=== PATIENT | male | born 1950 | race Caucasian/White ===

== ENCOUNTER 2019-09-13 23:56 | Emergency (ER) | payer OTHER, SELFPAY ==
--- NOTE | ~2019-09-13 | XR_ITS ---
EXAMINATION: XR chest 2V DATE: 09/14/2019 01:07 INDICATION: Shortness of breath. TECHNIQUE: Frontal and lateral views of the chest were obtained. COMPARISON: Chest 2 views 10/04/2018, chest CT 10/04/2018 FINDINGS: The chest demonstrates clear lungs without pneumonia, pleural effusion, or pneumothorax. Th e heart size is normal. IMPRESSION: 1. No acute cardiopulmonary disease. Reviewed, dictated and finalized at location A. PULLER
[2019-09-14 00:03] VITALS: BP 145/83; PULSE 95; RESP 18; TEMP 38.1; O2SAT 99
--- NOTE | 2019-09-14 00:39 | ED.MALEGU ---
HPI - Male Genitourinary General Chief complaint: Urogenital-Male Stated complaint: sob Time Seen by Provider: 09/14/19 00:31 Source: patient, family and RN notes reviewed Mode of arrival: wheelchair Limitations: no limitations History of Present Illness HPI Narrative: A 69 y/o male presents to the ED with burning dysuria and urinary frequency beginning yesterday. He reports that today he began to have chills and a subjective fever, so he decided to come to the ED. He notes that he has chronic SOB. He also notes that he currently has kidney stones that he is supposed to get a lithotripsy for in the near future. He denies any CP, wheezes, N/V/D, or ABD pain. MD Complaint: dysuria and other (urinary frequency) Onset (ago): day(s) (1) Quality: burning Associated symptoms: Reports fever (subjective) and other (chills and chronic SOB) Related Data Allergies Allergy/AdvReac Type Severity Reaction Status Date / Time latex Allergy Unknown Blister Verified 09/14/19 01:17 Review of Systems Review of Systems: All systems reviewed & are unremarkable except as noted in HPI and below Constitutional: Constitutional: Reports chills and Reports fever(s) (subjective) Cardiovascular: Cardiovascular: Reports chest pain Respiratory: Respiratory: Reports dyspnea (chronic) and Denies wheezing Gastrointestinal: Gastrointestinal: Denies abdominal pain, Denies diarrhea, Denies nausea and Denies vomiting Genitourinary: Genitourinary: Reports dysuria and Reports urinary frequency PMFSH Past Medical History Medical History (Updated 09/14/19 @ 02:29 by Zenon Cordoba MD) Arthritis Blockage of coronary artery of heart BPH (benign prostatic hyperplasia) GERD (gastroesophageal reflux disease) H/O: HTN (hypertension) Hypercholesteremia Sleep apnea Surgical History Surgical History (Updated 09/14/19 @ 01:23 by Glen Lara) History of ankle surgery rt. History of appendectomy Hx of cardiac cath S/P AKA (above knee amputation) unilateral lt. Social History Social History (Updated 09/14/19 @ 01:23 by Glen Lara) Social History: Smokes 1 cigar daily. Smoking status: Current every day smoker Tobacco type: cigars Second hand tobacco smoke exposure: Yes Gender identity (if verbalized by the patient): Male Comments PCP: Dr. Russell. Exam Const: General: no acute distress and ill appearing Nutritional Appearance: obese HENMT: Mouth: Yes lip normal and Yes moist mucous membranes Eyes: Conjunctivae: conjunctivae normal Pupils: Equal, round and reactive pupils present Resp: Effort & Inspection: tachypneic Auscultation: clear to auscultation bilaterally Cardio: Rate: regular rate Rhythm: regular rhythm Heart sounds: no murmurs GI: GI Palp: Yes Soft to palpation and No Tenderness to palpation present (GI) Auscultation: normal bowel sounds Back/Spine/Pelvis: Other: Full ROM. Skin: General skin exam: normal color, dry skin and other (warm) Neuro: General: patient oriented x3 (alert) Speech: normal speech Extrem: General: other (lt AKA) Right upper extremity: full ROM Left upper extremity: full ROM Right lower extremity: full ROM Psych: Mental Status: mental status grossly normal Affect: normal affect Course Vital Signs Vital signs: Vital Signs Temperature 38.1 C H 09/14/19 00:03 Pulse Rate 95 09/14/19 00:03 Respiratory Rate 18 09/14/19 00:03 Blood Pressure 145/83 H 09/14/19 00:03 Pulse Oximetry 99 09/14/19 00:03 Temperature 38.2 C H 09/14/19 01:11 Pulse Rate 85 09/14/19 01:11 Respiratory Rate 20 09/14/19 01:11 Blood Pressure 134/71 09/14/19 01:11 Pulse Oximetry 96 09/14/19 01:11 MDM - Male Genitourinary MDM Narrative Medical decision making narrative: UA indicates infection. I will change him to an antibiotic with lower resistance rates than the Bactrim he is currently taking. Can't rule out pyelonephritis. I discussed admission with him. He would prefer to try
[2019-09-14 01:01] LABS: Basophils Percent Auto 0.4 % (0.2-1.2); Eosinophils Absolute Auto 0.2 K/mm3 (0-0.3); Eosinophils Percent Auto 2.1 % (0-4.4); Hematocrit 44.8 % (42.0-52.0); Immature Granulocyte Absolute 0.07 K/mm3 (0.00-0.031); Immature Granulocyte Percent A 0.7 % (0-0.5); Lymphocytes Absolute Auto 0.87 K/mm3 (0.9-3.2); Lymphocytes Percent Auto 8.2 % (18.3-44.2); Mean Corpuscular HGB Conc 33.5 g/dl (32-36); Mean Corpuscular Hemoglobin 30.4 pg (26-34); Mean Corpuscular Volume 90.9 fl (80-100); Mean Platelet Volume 9.2 fl (7.4-10.4); Monocytes Percent Auto 9.2 % (2.6-8.5); Neutrophils Absolute Auto 8.4 K/mm3 (1.3-6.7); Neutrophils Percent Auto 79.4 % (45.5-73.1); Platelet Count Result 203 k/mm3 (150-375); Red Blood Count 4.93 M/mm3 (4.6-6.20); Red Cell Distribution Width 13.4 % (11.5-14.5); White Blood Count 10.6 K/mm3 (4.5-10.0)
[2019-09-14 01:11] VITALS: BP 134/71; PULSE 85; RESP 20; TEMP 38.2; O2SAT 96
[2019-09-14 01:13] LABS: Alanine Aminotransferase 30 U/L (4-50); Albumin Level 4.3 g/dL (3.5-5.1); Alkaline Phosphatase 82 U/L (38-126); Aspartate Amino Transferase 32 U/L (17-59); Bilirubin,Total 0.5 mg/dL (0.2-1.3); Blood Urea Nitrogen 23 mg/dL (9-20); Calcium 9.6 mg/dL (8.4-10.2); Carbon Dioxide 24 mmol/L (22-30); Chloride 99 mmol/L (98-107); Estimated CRCL calculation 118 ml/min; Estimated Glomerular Filt Rate > 60; Glucose 147 mg/dL (75-110); Lipase 37 U/L (23-300); Potassium 4.5 mmol/L (3.4-5.0); Sodium 135 mmol/L (137-145)
[2019-09-14 01:54] LABS: Add Urine Microscopic? YES; Appearance Urine Cloudy (Clear); Bilirubin Urine Negative (Negative); Blood Urine 2+ (Negative); Color Urine Yellow (Yellow); Glucose Urine UA Negative (Negative); Ketones Urine Negative (Negative); Leukocyte Esterase Ur 3+ LEU/UL (Negative); Mucus Urine Rare /lpf; Nitrate Urine Positive (Negative); Protein Urine 2+ mg/dL (Negative); RBC Urine >75 /hpf (0-2); Specific Grav Ur 1.019 (1.001-1.035); Squamous Epithelial Cell Urine Rare /hpf (Few); Urobilinogen Urine Negative mg/dL (<2.0); WBC Clumps Urine Present /HPF; WBC Urine >75 /hpf
[2019-09-14] MEDS: CEFDINIR 300 MG CAPSULE PO (03:04)
== END 2019-09-14 03:13 | disposition home or self-care (01) ==
PROVIDERS: Emergency Provider Emergency Medicine; PCP Family Medicine
DX: N30.01 Acute cystitis with hematuria (principal); M19.90 Unspecified osteoarthritis, unspecified site; I25.10 Atherosclerotic heart disease of native coronary artery without angina pectoris; N40.0 Benign prostatic hyperplasia without lower urinary tract symptoms; K21.9 Gastro-esophageal reflux disease without esophagitis; I10 Essential (primary) hypertension; E78.5 Hyperlipidemia, unspecified; G47.30 Sleep apnea, unspecified
CPT/HCPCS: 36415; 71046; 80053; 81001; 83690; 85025; 87077; 87086; 87088; 87186; 87804; 99283; A9270

== ENCOUNTER 2019-10-02 19:44 | Inpatient (IN) | payer MEDICARE, OTHER, SELFPAY ==
--- NOTE | ~2019-10-02 | XR_ITS ---
EXAMINATION: XR chest 1V portable INDICATION: Shortness of breath and cough TECHNIQUE: Portable AP chest at 2014 hours COMPARISON: 09/14/2019 FINDINGS: The lungs are free of acute opacities. There is no pleural effusion or pneumothorax. The he art size is normal. Calcified atherosclerosis is noted. IMPRESSION: 1. No acute cardiopulmonary abnormality. Reviewed, dictated and finalized at location A. AND SHRUB TECHNICIAN
--- NOTE | ~2019-10-02 | CT_ITS ---
EXAMINATION: CTA chest PE protocol DATE: 10/02/2019 21:17 INDICATION: Shortness of breath TECHNIQUE: Computed tomography angiography (CTA) of the chest was performed with 100 mL Omnipaque-350 intravenous contrast timed to evaluate the pulmonary arteries. Coronal maximum intensity projection 3D-reconstructions were created by the technologist. The dose-length product (DLP) was 979.10 mGy-cm. Automated exposure control and iterative reconstruction technique were employed. COMPARISON: 10/04/2018 FINDINGS: The pulmonary arteries are well-opacified. No pulmonary embolism is identified. Dependent atelectasis is noted. The previously described pneumatocele of the right lower lobe is no longer pres ent. There is no pleural effusion or pneumothorax. There is stable cardiomegaly. There are no patholo gically enlarged thoracic lymph nodes. There are bridging osteophytes at multiple levels in the spine , consistent with diffuse idiopathic skeletal hyperostosis (DISH). There is moderate thoracic spondyl osis. IMPRESSION: 1. No pulmonary embolism identified. 2. Dependent atelectasis. 3. Stable cardiomegaly. Reviewed, dictated and finalized at location A. PUDDLER
[2019-10-02 19:58] VITALS: BP 161/79; PULSE 78; RESP 18; TEMP 37.2; O2SAT 98
--- NOTE | 2019-10-02 20:05 | ED.SOB ---
HPI - SOB/Dyspnea General Chief Complaint: Shortness of Breath/Dyspnea Stated Complaint: difficulty breathing, possible uti, Time Seen by Provider: 10/02/19 20:03 Source: patient, RN notes reviewed and old records reviewed Mode of arrival: ambulatory Limitations: no limitations History of Present Illness HPI Narrative: Pt is a 69 y/o male with a Hx of bronchitis, who presents to the ED with c/o SOB starting earlier today. He notes that he has had difficulty breathing all day today. Pt also reports having intermittent chest pain throughout the day, stating that he has had several episodes of rt sided chest pain and one episode of lt sided chest pain. He denies any CP while in the ED bed. Pt currently reports a mild cough and subjective fever, but denies any nausea, vomiting, or diaphoresis. According to old records, the pt was recently evaluated here on 09/14/19 and diagnosed with a UTI. MD elicited complaint: shortness of breath Pertinent past history: other (bronchitis) Onset (ago): hour(s) (several) Known history of: other (bronchitis) Associated symptoms: chest pain (rt sided chest pain; lt sided chest pain (resolved)), fever (subjective) and cough Related Data Allergies Allergy/AdvReac Type Severity Reaction Status Date / Time latex Allergy Unknown Blister Verified 10/02/19 20:03 Review of Systems Review of Systems: All systems reviewed & are unremarkable except as noted in HPI and below Constitutional: Constitutional: Reports fever(s) (subjective) Cardiovascular: Cardiovascular: Reports chest pain (rt sided chest pain; lt sided chest pain (resolved)) and Denies diaphoresis Respiratory: Respiratory: Reports cough and Reports dyspnea Gastrointestinal: Gastrointestinal: Denies nausea and Denies vomiting [facility] Past Medical History Medical History (Updated 10/03/19 @ 00:13 by Jose Roberson DO) Arthritis Blockage of coronary artery of heart BPH (benign prostatic hyperplasia) Bronchitis GERD (gastroesophageal reflux disease) H/O: HTN (hypertension) Hypercholesteremia Sleep apnea Surgical History Surgical History History of ankle surgery rt. History of appendectomy Hx of cardiac cath S/P AKA (above knee amputation) unilateral lt. Social History Social History Social History: Smokes 1 cigar daily. Smoking status: Current every day smoker Tobacco type: cigars Second hand tobacco smoke exposure: Yes Gender identity (if verbalized by the patient): Male Exam Narrative: Exam Narrative: APPEARANCE: No acute distress, nontoxic, resting in bed EYES: EOMI HEENT: Normocephalic, atraumatic, OMM RESPIRATORY: No respiratory distress Clear to auscultation bilaterally with no rhonchi wheezing or rales. CARDIOVASCULAR: Regular rate and rhythm without murmurs rubs or gallops. ABDOMINAL: Soft, nontender, nondistended, no rebound or guarding MUSCULOSKELETAl: Moves all extremities. No clubbing, cyanosis or edema. Left AKA NEURO: Awake and alert. Following commands, speech normal, no focal deficits SKIN:: Warm, dry. No rashes lesions or abrasions PSYCHIATRIC: Normal affect/mood, Course Course Emergency Course: Patient notes burning with urination will obtain UTI Discussed with patient and family results of workup and diagnosis. Discussed need for admission. Patient and family understand and agree to current treatment plan Consultations Consultation #1: Discussed case with student liaison officer, Dr. Hardy. Requests admission to the hospitalist service. Date: 10/02/19 Time: 23:32 Consultation #2: Discussed case with hospitalist, Dr. Haley. Accepts admission. Date: 10/03/19 Time: 00:08 Vital Signs Vital signs: Vital Signs Temperature 99 F 10/02/19 19:58 Pulse Rate 78 10/02/19 19:58 Respiratory Rate 18 10/02/19 19:58 Blood Pressure 161/79 H 10/02/19 19:58 Pulse Oximetry 98 10/02/19 19:58 Temperature
--- NOTE | 2019-10-02 20:06 | ECG_ITS ---
Measurements Intervals Lillian Rate: 79 P: 10 IA: 165 QRS: -40 QRSD: 121 T: 6 QT: 389 QTc: 447 Interpretive Statements SINUS RHYTHM LEFT AXIS DEVIATION INTRAVENTRICULAR CONDUCTION DELAY VOLTAGE CRITERIA FOR LVH POOR R WAVE PROGRESSION, ANTERIOR LEADS NONSPECIFIC ST ELEVATION- ANT/LAT LEADS BORDERLINE ST-T WAVE ABNORMALITY- INFERIOR LEADS BASELINE ARTIFACT- I, II, AVR, AVL ABNORMAL ECG Electronically Signed On 10-03-2019 6:49:01 RESIDENTIAL TEAM LEADER by Cuba French D.O.
[2019-10-02 20:31] VITALS: BP 140/79; PULSE 78; RESP 20; O2SAT 95
[2019-10-02 20:34] LABS: Basophils Absolute Auto 0.1 K/mm3 (0.0-0.1); Basophils Percent Auto 0.7 % (0.2-1.2); Eosinophils Absolute Auto 0.5 K/mm3 (0-0.3); Eosinophils Percent Auto 6.6 % (0-4.4); Hematocrit 43.9 % (42.0-52.0); Hemoglobin 14.7 g/dL (14.0-18.0); Immature Granulocyte Absolute 0.03 K/mm3 (0.00-0.031); Immature Granulocyte Percent A 0.4 % (0-0.5); Lymphocytes Absolute Auto 1.54 K/mm3 (0.9-3.2); Lymphocytes Percent Auto 22.4 % (18.3-44.2); Mean Corpuscular HGB Conc 33.5 g/dl (32-36); Mean Corpuscular Hemoglobin 30.6 pg (26-34); Mean Corpuscular Volume 91.3 fl (80-100); Mean Platelet Volume 9.7 fl (7.4-10.4); Monocytes Absolute Auto 0.7 K/mm3 (0.1-0.6); Monocytes Percent Auto 9.8 % (2.6-8.5); Neutrophils Absolute Auto 4.1 K/mm3 (1.3-6.7); Neutrophils Percent Auto 60.1 % (45.5-73.1); Platelet Count Result 241 k/mm3 (150-375); Red Blood Count 4.81 M/mm3 (4.6-6.20); Red Cell Distribution Width 13.5 % (11.5-14.5); White Blood Count 6.9 K/mm3 (4.5-10.0)
[2019-10-02 20:46] LABS: INR 0.9; Prothrombin Time 11.9 Seconds (11.1-14.7)
[2019-10-02 20:47] LABS: Blood Urea Nitrogen 17 mg/dL (9-20); Carbon Dioxide 23 mmol/L (22-30); Chloride 101 mmol/L (98-107); Estimated CRCL calculation 93 ml/min; Estimated Glomerular Filt Rate > 60; Glucose 145 mg/dL (75-110); Partial Thromboplastin Time 31.5 SECONDS (22.3-36.8); Potassium 4.5 mmol/L (3.4-5.0); Sodium 140 mmol/L (137-145)
[2019-10-02 20:54] VITALS: BP 140/79; PULSE 74; RESP 20; O2SAT 94
[2019-10-02 20:59] LABS: NT Pro B Type Natriuretic Pept 52 PG/ML (5-100); Troponin I < 0.012 ng/mL (0.000-0.034)
[2019-10-02 22:28] VITALS: BP 140/63; PULSE 67; RESP 20; O2SAT 94
[2019-10-02 22:35] LABS: Add Urine Microscopic? YES; Appearance Urine Clear (Clear); Bilirubin Urine Negative (Negative); Blood Urine Negative (Negative); Color Urine Straw (Yellow); Glucose Urine UA Negative (Negative); Ketones Urine Negative (Negative); Leukocyte Esterase Ur 3+ LEU/UL (Negative); Mucus Urine Rare /lpf; Nitrate Urine Negative (Negative); Protein Urine Negative (Negative); Specific Grav Ur 1.044 (1.001-1.035); Squamous Epithelial Cell Urine Rare /hpf (Few); Urobilinogen Urine Negative mg/dL (<2.0)
[2019-10-02 23:30] VITALS: BP 129/62; PULSE 63; RESP 20; O2SAT 96
[2019-10-03] VITALS (9 sets, daily range): BP systolic 111–147; BP diastolic 70–83; PULSE 67–83; RESP 13–22; TEMP 36.4–36.9; O2SAT 92–96; BMI 43.9
[2019-10-03 00:03] LABS: Troponin I < 0.012 ng/mL (0.000-0.034)
--- NOTE | 2019-10-03 01:00 | ADMIMU ---
This patient, Mario Shore, was admitted to IMU status, and placed in Intensive Care Unit-2. Patient/family oriented to hospital policies and general routines including ID bracelet, bed and alarms, visiting hours, pain management, procedures, bathroom and other care routines, personal items, smoking policy, room service/diet, and visiting hours. Valuables list has been completed. Information on how to activate the Rapid Response Team has been discussed. Patient/Family are encouraged to report perceived risks to care and to ask questions if they do not understand what they are told or what they should do.
[2019-10-03 03:12] LABS: Troponin I < 0.012 ng/mL (0.000-0.034)
--- NOTE | 2019-10-03 10:06 | PM.CNCAR ---
Assessment and Plan Assessment and plan (1) Shortness of breath: Code(s): R06.02 - Shortness of breath Status: Acute Assessment and Plan: Has dyspnea and orthopnea likely due to CHF that is could be diastolic in the setting of JOSEFINA and obesity vs systolic in the setting of prior RI per pt report Will check 2D echo to assess LV function and rule out structural heart disease BNP is 50 but that could be falsely negative in obese pts. Start IV lasix 40 mg daily with close monitoring of in/out and kidney function (2) Chest pain: Code(s): R07.9 - Chest pain, unspecified Status: Acute Assessment and Plan: Atypical for angina He ruled out for RI by trop X3 and EKG He had LHC in 2003 and Chemical stress test within the last 2 years that is reportedly negative (3) HTN (hypertension): Code(s): I10 - Essential (primary) hypertension Status: Acute Assessment and Plan: Fair control on current antihypertensive regimen. Will continue to monitor (4) JOSEFINA (obstructive sleep apnea): Code(s): G47.33 - Obstructive sleep apnea (adult) (pediatric) Status: Acute Assessment and Plan: Conintue CPAP History of Present Illness History of Present Illness Consult date/time: 10/03/19 10:06 69 y/o with h/o HTN, HLD, JOSEFINA on CPAP, s/p amputation of left leg (traumatic,[place]) who presented with shortness of breath. Pt states that he followed by Dr Negro at [facility] and had heart cath ~ 2003 and was told he has small spot of his heart muscle but never had stents placed. He had chemical stress test within the last 2 years. He reports shortness of breath around Nov after returned from trip to [place] and was treated with steroids taper. He was here earlier this month with shortness of breath as well with negative work up. He presented again with shortness of breath that is worse at night time when he is trying to lay down to sleep. It forces him to sit on the edge of bed to catch his breath. He has 2 episodes of chest pain yesterday, one hour apart both lasting for no longer than 20 seconds. First was right sided sharp. Second episodes was left sided and dull. Admits to right leg edema that typically improve after he raise his leg. EKG showed sinus rhythm with non specific ST changes. Had CT chest with no PE but cardiomegaly noted. No pleural effusions. Trop negative X3. He lives sedentary lifestyle and mostly in the wheelchair due to amputation of leg. never smoker of cigarettes though admits to social cigar smoking Reason For Visit: chest pain, UTI Review of Systems Review of Systems: All systems reviewed & are unremarkable except as noted in HPI and below Constitutional: Constitutional: Denies fatigue and Denies headache(s) Eyes: Eyes: Denies blurry vision ENT: Reports Normal hearing present and Denies headache(s) Cardiovascular: Cardiovascular: Reports chest pain, Denies diaphoresis, Denies pedal edema, Reports leg edema, Denies lightheadedness, Denies palpitations and Denies dyspnea Respiratory: Respiratory: Denies cough and Reports dyspnea Gastrointestinal: Gastrointestinal: Denies abdominal pain Musculoskeletal: Musculoskeletal: Denies back pain Neurologic: Reports Normal hearing present and Denies headache(s) Psychiatric: Psychiatric: Denies anxiety Endocrine: Endocrine: Denies fatigue and Denies palpitations PMFSH Past Medical History Medical History (Updated 10/03/19 @ 10:17 by Maria Eugenia Foy MD) Arthritis Blockage of coronary artery of heart BPH (benign prostatic hyperplasia) Bronchitis GERD (gastroesophageal reflux disease) H/O: HTN (hypertension) Hypercholesteremia Sleep apnea Surgical History Surgical History History of ankle surgery rt. History of appendectomy Hx of cardiac cath S/P AKA (above knee amputation) unilateral lt. Family History Family History (
--- NOTE | 2019-10-03 10:21 | ECHO_ITS ---
Patient Info Name: Mario Shore Age: 69 years : 1950 Gender: Male Ht: 71 in Wt: 315 lbs BSA: 2.74 m2 HR: 70 bpm BP: 137 / 76 mmHg Heart Rhythm: Sinus Rhythm Technical Quality: Fair Exam Date: 10/03/2019 12:15 PM Exam Location: [facility] Pul[facility] Patient Status: Inpatient Admit Date: 10/03/2019 Staff Ordering Physician: Maria Eugenia Foy MD (flor/ben) Wildlife Technician: Noble Rodriguez RDCS Attending Provider: Beulah Haley DO Exam Type: CA echo dop color flow w con Study Info Indications R06.00 - Dyspnea, unspecified Complete two-dimensional, color flow and Doppler transthoracic echocardiogram is performed with contrast to opacify the left ventrical and to improve the deliniation of the left ventrical endocarial boarders. Contrast/Agitated Saline Contrast/Ag. Saline: Definity Amount: 3.00 ml Administered By: Usha Leonard RN Existing IV Access: Yes History/Risk Factors Dyspnea; CAD, HTN, CHF, cardiomegaly. Summary 1. Left ventricular systolic function is moderately reduced, estimated at 40-45%. 2. Right ventricular chamber dimension is moderately enlarged. 3. Right ventricular systolic function is reduced. 4. There is mild tricuspid valve regurgitation. 5. Moderate pulmonary hypertension, estimated pulmonary arterial systolic pressure is 45 mmHg. Left Ventricle Left ventricular chamber dimension is normal. Left ventricular systolic function is moderately reduced, estimated at 40-45%. There is no increased left ventricular wall thickness. Left ventricular septal wall motion is abnormal with septal motion related to bundle branch block. The left ventricular diastolic function is grade III diastolic dysfunction. Right Ventricle Right ventricular chamber dimension is moderately enlarged. Right ventricular systolic function is reduced. Left Atria Left atrial chamber dimension is mildly enlarged. Right Atria Right atrial chamber dimension is normal. Aortic Valve The aortic valve is trileaflet. There is no aortic valve sclerosis. There is no aortic valve stenosis. There is no aortic valve regurgitation. Pulmonic Valve The pulmonic valve is normal. There is no pulmonic valve stenosis. There is no pulmonic regurgitation. Mitral Valve The mitral valve has normal leaflets. There is no mitral valve stenosis. There is no mitral valve regurgitation. Tricuspid Valve The tricuspid valve leaflets are normal. There is no significant tricuspid valve stenosis. There is mild tricuspid valve regurgitation. Moderate pulmonary hypertension, estimated pulmonary arterial systolic pressure is 45 mmHg. Pericardium/Pleural The pericardium appears normal. There is no pericardial effusion. Aorta The aortic root size at the sinus of Valsalva is normal. The prox ascending aorta size is normal. Left Ventricular Outflow Tract Name Value Normal LVOT 2D LVOT Diameter 2.32 cm LVOT Doppler LVOT Peak Gradient 2 mmHg LVOT Mean Gradient 1 mmHg LVOT VTI
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
[2019-10-03] MEDS: PREGABALIN 75 MG CAPSULE 300 MG PO ×2 (11:00→20:44)
[2019-10-03] MEDS: METOPROLOL TARTRATE 50 MG TAB PO ×2 (11:00→20:33)
[2019-10-03] MEDS: PANTOPRAZOLE 40 MG TABLET PO ×2 (11:01→20:33)
[2019-10-03] MEDS: FUROSEMIDE INJ 40 MG/4 ML VIAL IV PUSH (11:01)
[2019-10-03] MEDS: TRIMETHOPRIM 100 MG TABLET PO (11:01)
[2019-10-03] MEDS: ENOXAPARIN 40 MG/0.4 ML SYRINGE SUB-Q (11:29)
[2019-10-03] MEDS: PERFLUTREN LIPID MICROSPHERES 1.5 ML VIAL DILUTED TO 10 ML TOTAL VOLUME IV PUSH (12:48)
[2019-10-03] MEDS: SIMVASTATIN 20 MG TABLET 40 MG PO (20:32)
[2019-10-03] MEDS: TAMSULOSIN HCL 0.4 MG CAPSULE PO (20:44)
--- NOTE | 2019-10-03 21:53 | PC.NURSE ---
This patient, Mario Shore, was received from [ ICU ] on 10/03/19 at 2153. Personal belongings list checked and signed. Patient/family oriented to unit policies and routines
--- NOTE | 2019-10-03 23:23 | PC.NURSE ---
This patient, Mario Shore, was transferred to [310 ] on 10/03/19 at 2200. Personal belongings sent with patient. Belongings list checked and signed with receiving [ RN]. Report given to [Scarlett SULLIVAN ]. Appropriate documentation sent with patient.
[2019-10-03] MEDS: MELATONIN 3 MG TABLET PO (23:35)
[2019-10-04 06:00] VITALS: BP 137/82; PULSE 86; RESP 20; TEMP 36.8; O2SAT 93
[2019-10-04 06:29] LABS: Basophils Percent Auto 0.5 % (0.2-1.2); Eosinophils Absolute Auto 0.4 K/mm3 (0-0.3); Eosinophils Percent Auto 5.2 % (0-4.4); Hematocrit 43.6 % (42.0-52.0); Hemoglobin 14.6 g/dL (14.0-18.0); Immature Granulocyte Absolute 0.03 K/mm3 (0.00-0.031); Immature Granulocyte Percent A 0.4 % (0-0.5); Lymphocytes Percent Auto 26.1 % (18.3-44.2); Mean Corpuscular HGB Conc 33.5 g/dl (32-36); Mean Corpuscular Hemoglobin 29.7 pg (26-34); Mean Corpuscular Volume 88.8 fl (80-100); Mean Platelet Volume 9.7 fl (7.4-10.4); Monocytes Absolute Auto 0.8 K/mm3 (0.1-0.6); Monocytes Percent Auto 10.8 % (2.6-8.5); Neutrophils Absolute Auto 4.4 K/mm3 (1.3-6.7); Platelet Count Result 201 k/mm3 (150-375); Red Blood Count 4.91 M/mm3 (4.6-6.20); Red Cell Distribution Width 13.6 % (11.5-14.5); White Blood Count 7.7 K/mm3 (4.5-10.0)
[2019-10-04 06:42] LABS: Blood Urea Nitrogen 19 mg/dL (9-20); Calcium 9.2 mg/dL (8.4-10.2); Carbon Dioxide 27 mmol/L (22-30); Chloride 101 mmol/L (98-107); Estimated CRCL calculation 124 ml/min; Estimated Glomerular Filt Rate > 60; Glucose 120 mg/dL (75-110); Potassium 3.8 mmol/L (3.4-5.0); Sodium 138 mmol/L (137-145)
[2019-10-04 08:45] VITALS: PULSE 100
[2019-10-04] MEDS: METOPROLOL TARTRATE 50 MG TAB PO ×2 (08:45→21:25)
[2019-10-04] MEDS: ENOXAPARIN 40 MG/0.4 ML SYRINGE SUB-Q (08:47)
[2019-10-04] MEDS: PANTOPRAZOLE 40 MG TABLET PO ×2 (08:47→21:25)
[2019-10-04] MEDS: PREGABALIN 75 MG CAPSULE 300 MG PO ×2 (08:52→21:33)
[2019-10-04] MEDS: FUROSEMIDE INJ 40 MG/4 ML VIAL IV PUSH (08:53)
[2019-10-04] MEDS: ACETAMINOPHEN 325 MG TABLET 650 MG PO (12:19)
[2019-10-04 14:00] VITALS: BP 124/65; PULSE 81; RESP 18; TEMP 36.7; O2SAT 94
--- NOTE | 2019-10-04 15:20 | PM.PNCARD ---
Progress Note: A&P Assessment and Plan (1) Shortness of breath: Code(s): R06.02 - Shortness of breath Status: Acute Assessment and Plan: Has dyspnea and orthopnea likely due to CHF that is could be diastolic in the setting of JOSEFINA and obesity vs systolic in the setting of prior [facility] per pt report echo showed [id number] left ventricular systolic dysfunction, significant dilatation of the right ventricle with right ventricular failure Start IV lasix 40 mg daily with close monitoring of in/out and kidney function (2) Chest pain: Qualifiers: Chest pain type: unspecified Qualified Code(s): R07.9 - Chest pain, unspecified Code(s): R07.9 - Chest pain, unspecified Status: Acute Assessment and Plan: Atypical for angina He ruled out for VA by trop X3 and EKG He had LHC in 2003 and Chemical stress test within the last 2 years that is reportedly negative may need repeat cardiac catheterization at some point he is otherwise stable (3) HTN (hypertension): Qualifiers: Hypertension type: essential hypertension Qualified Code(s): I10 - Essential (primary) hypertension Code(s): I10 - Essential (primary) hypertension Status: Acute Assessment and Plan: Fair control on current antihypertensive regimen. Will continue to monitor (4) JOSEFINA (obstructive sleep apnea): Code(s): G47.33 - Obstructive sleep apnea (adult) (pediatric) Status: Acute Assessment and Plan: Conintue CPAP Subjective Date/time seen: 10/04/19 15:20 he feels slightly better today, still with cough shortness of breath, still with fatigue. No chest pain. 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 Trace edema on the right lower ext. Skin: General skin exam: normal color Neuro: Cranial nerves: Yes Normal hearing present Speech: normal speech Extrem: General: normal to inspection and no edema Psych: Affect: normal affect Objective Data Vital Signs Vital Signs: Vital Signs - 24 hr 10/03/19 20:00 10/03/19 20:33 10/03/19 22:56 Temperature 36.4 C 36.5 C Pulse Rate 77 77 83 Respiratory Rate 20 22 H Blood Pressure 111/73 142/83 H Pulse Oximetry 93 95 10/04/19 06:00 10/04/19 08:45 10/04/19 14:00 Temperature 36.8 C 36.7 C Pulse Rate 86 100 81 Respiratory Rate 20 18 Blood Pressure 137/82 124/65 Pulse Oximetry 93 94 Intake/Output Intake/Output: Intake & Output 10/01/19 10/02/19 10/03/19 10/04/19 23:59 23:59 23:59 23:59 Intake Total 50 970 960 Output Total 3750 750 Balance 50 -2780 210 Meds/Results Medications: Active Medications Generic Name Dose Route Start Last Admin Trade Name Freq PRN Reason Stop Dose Admin Acetaminophen 650 mg 10/04/19 11:16 10/04/19 12:19 Tylenol Tablet PO 650 mg Q6H PRN Administration Mild Pain (1-3) or Fever Enoxaparin Sodium 40 mg 10/03/19 11:05 10/04/19 08:47 Lovenox SUB-Q 40 mg DAILY LUCIA Administration Furosemide 40 mg 10/03/19 10:30 10/04/19 08:53 Lasix Inj IV PUSH 40 mg DAILY LUCIA Administration Ceftriaxone Sodium/Dextrose 1 gm in 50 mls @ 100 mls/hr 10/04/19 09:00 10/04/19 10:51 Rocephin 1 Gm/D5w 50 Ml IVPB Infused Q24H LUCIA Infusion Melatonin 3 mg 10/03/19 21:04 10/03/19 23:35 Melatonin PO 3 mg HS PRN Administration Restless Metoprolol Tartrate 50 mg 10/03/19 09:00 10/04/19 08:45 Lopressor PO 50 mg Q12HR LUCIA Administration Pantoprazole Sodium 40 mg 10/03/19 09:00 10/04/19 08:4
--- NOTE | 2019-10-04 15:46 | PM.IMPN ---
Progress Note: A&P Assessment and Plan (1) Shortness of breath: Code(s): R06.02 - Shortness of breath Status: Acute Assessment and Plan: Shortness of breath is chronic and only while supine He does not have any dyspnea on exertion, chest x-ray shows no evidence for volume overload, CTA chest is negative, and BNP is negative Anxiety, sleep apnea, and diastolic congestive heart failure may all be contributing factors. Cardiology input noted and appreciated Continue gentle diuresis with EF 40-45% and right-sided failure also present and will start low-dose EARL-inhibitor (2) Chest pain: Qualifiers: Chest pain type: unspecified Qualified Code(s): R07.9 - Chest pain, unspecified Code(s): R07.9 - Chest pain, unspecified Status: Acute Assessment and Plan: Troponins are negative at baseline 3 hours and 6 hours and EKG shows no ischemic change Pulmonary CTA negative for emboli Is most likely that his pain is musculoskeletal as it is chronic intermittent and fairly random cardiology will evaluate for ischemia at a later time (3) UTI (urinary tract infection): Qualifiers: Hematuria presence: without hematuria Urinary tract infection type: site unspecified Qualified Code(s): N39.0 - Urinary tract infection, site not specified Code(s): N39.0 - Urinary tract infection, site not specified Status: Acute Assessment and Plan: This is been a recurring issue and thought related to stones (this is purportedly his 4th UTI in the past year) September 14 urine culture grew E coli sensitive to ceftriaxone Ceftriaxone empirically pending urine culture results which are still pending (4) HTN (hypertension): Qualifiers: Hypertension type: essential hypertension Qualified Code(s): I10 - Essential (primary) hypertension Code(s): I10 - Essential (primary) hypertension Status: Acute Assessment and Plan: Continue home regimen and monitor (5) Anxiety: Code(s): F41.9 - Anxiety disorder, unspecified Status: Acute Assessment and Plan: It is unclear whether this is his primary issue or whether it is secondary to his dyspnea Monitor with gentle diuresis Consider adding an SSRI this issue persists despite adequate diuresis (6) JOSEFINA (obstructive sleep apnea): Code(s): G47.33 - Obstructive sleep apnea (adult) (pediatric) Status: Acute Assessment and Plan: Continue home BiPAP Subjective Date/time seen: 10/04/19 15:46 Interval history: Date of visit 10/04. 69-year-old hypertensive admitted with atypical chest pain shortness breath. Echo showed EF 40-45% right-sided failure and moderate pulmonary hypertension. Doing better with diuresis and does have a recurrent UTI Exam Narrative: Exam Narrative: Blood pressure 136/84 pulse is 86 saturating 96% room air HEENT: EOMI, PERRL, NECK: No JVD supple CHEST: Clear to auscultation. Normal effort. HEART: NL S1/S2, regular, no murmur, no gallop ABDOMEN: BS+, soft, nontender, no mass, no bruits EXTREMITIES: No cyanosis, trace pretibial edema on right with venous stasis changes, left above knee amputation NEUROLOGIC: CN intact and symmetric to inspection. Objective Data Vital Signs Vital Signs: Vital Signs - 24 hr 10/03/19 20:00 10/03/19 20:33 10/03/19 22:56 Temperature 36.4 C 36.5 C Pulse Rate 77 77 83 Respiratory Rate 20 22 H Blood Pressure 111/73 142/83 H Pulse Oximetry 93 95 10/04/19 06:00 10/04/19 08:45 10/04/19 14:00 Temperature 36.8 C 36.7 C Pulse Rate 86 100 81 Respiratory Rate 20 18 Blood Pressure 137/82 124/65 Pulse Oximetry 93 94 Intake/Output Intake/Output: Intake & Output 10/01/19 10/02/19 10/03/19 10/04/19 23:59 23:59 23:59 23:59 Intake Total 50 970 960 Output Total 3750 750 Balance 50 -2780 210 Meds/Results Medications: Active Medications Generic Name Dose Route Start Last Admin Trade Name Duglas
--- NOTE | 2019-10-04 20:00 | PC.NURSE ---
Patient is refusing bed alarm, gets to the chair and BSC independently. Patient aware of high fall risk status but is alert and oriented and accepts the risks.
[2019-10-04 21:25] VITALS: PULSE 93
[2019-10-04] MEDS: SIMVASTATIN 20 MG TABLET 40 MG PO (21:25)
[2019-10-04] MEDS: TAMSULOSIN HCL 0.4 MG CAPSULE PO (21:26)
[2019-10-04 22:00] VITALS: BP 158/81; PULSE 66; RESP 18; TEMP 36.3; O2SAT 100
[2019-10-04] MEDS: MELATONIN 3 MG TABLET PO (22:06)
[2019-10-04 23:10] VITALS: PULSE 69; RESP 16; O2SAT 94
[2019-10-05 05:59] VITALS: BP 132/56; PULSE 78; RESP 20; TEMP 36.8; O2SAT 96
[2019-10-05 06:22] LABS: Blood Urea Nitrogen 16 mg/dL (9-20); Calcium 8.9 mg/dL (8.4-10.2); Carbon Dioxide 27 mmol/L (22-30); Chloride 98 mmol/L (98-107); Estimated CRCL calculation 124 ml/min; Estimated Glomerular Filt Rate > 60; Glucose 117 mg/dL (75-110); Potassium 3.9 mmol/L (3.4-5.0); Sodium 139 mmol/L (137-145)
[2019-10-05 08:26] VITALS: PULSE 68
[2019-10-05] MEDS: METOPROLOL TARTRATE 50 MG TAB PO ×2 (08:26→20:45)
[2019-10-05] MEDS: PANTOPRAZOLE 40 MG TABLET PO ×2 (08:26→20:46)
[2019-10-05] MEDS: lisinopriL 5 MG TABLET PO ×2 (08:27→12:01)
[2019-10-05] MEDS: PREGABALIN 75 MG CAPSULE 300 MG PO ×2 (08:28→20:44)
[2019-10-05] MEDS: ENOXAPARIN 40 MG/0.4 ML SYRINGE SUB-Q (08:28)
[2019-10-05] MEDS: FUROSEMIDE INJ 40 MG/4 ML VIAL IV PUSH ×2 (08:29→18:03)
--- NOTE | 2019-10-05 09:48 | PM.PNCARD ---
Progress Note: A&P Assessment and Plan (1) Shortness of breath: Code(s): R06.02 - Shortness of breath Status: Acute Assessment and Plan: Dyspnea is due to systolic CHF with EF 40-45% Slowly improving Will increase Lasix dose to BID Also has evidence of right heart failure with h/o JOSEFINA. Consider repeat sleep study/up titration of CPAP as outpatient. n (2) Chest pain: Qualifiers: Chest pain type: unspecified Qualified Code(s): R07.9 - Chest pain, unspecified Code(s): R07.9 - Chest pain, unspecified Status: Acute Assessment and Plan: Atypical for angina He ruled out for MA by trop X3 and EKG EF is low. Need to get records from last Echo. If this is a new LV dysfunction then Will consider repeat LHC once more stable from CHF standpoint He had LHC in 2003 and Chemical stress test within the last 2 years that is reportedly negative (3) HTN (hypertension): Qualifiers: Hypertension type: essential hypertension Qualified Code(s): I10 - Essential (primary) hypertension Code(s): I10 - Essential (primary) hypertension Status: Acute Assessment and Plan: Fair control. Continue Metoprolol. Will increase Lisinopril dose to 10 Titrate BB and EARL as BP/HR allows . (4) JOSEFINA (obstructive sleep apnea): Code(s): G47.33 - Obstructive sleep apnea (adult) (pediatric) Status: Acute Assessment and Plan: Conintue CPAP Subjective Date/time seen: 10/05/19 09:48 shortness of breath better compared to admission but not 100%. Review of Systems Review of Systems: All systems reviewed & are unremarkable except as noted in HPI and below Constitutional: Constitutional: Denies fatigue and Denies headache(s) Eyes: Eyes: Denies blurry vision ENT: Reports Normal hearing present and Denies headache(s) Cardiovascular: Cardiovascular: Reports chest pain, Denies diaphoresis, Denies pedal edema, Reports leg edema, Denies lightheadedness, Denies palpitations and Reports dyspnea Respiratory: Respiratory: Denies cough and Reports dyspnea Gastrointestinal: Gastrointestinal: Denies abdominal pain Musculoskeletal: Musculoskeletal: Denies back pain Neurologic: Reports Normal hearing present and Denies headache(s) Psychiatric: Psychiatric: Denies anxiety Endocrine: Endocrine: Denies fatigue and Denies palpitations Exam Const: General: no acute distress Eyes: Sclera: sclerae normal Neck: Neck: no JVD (Difficult to assess due to bodyhabiuts. 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 Trace edema on the right lower ext. Skin: General skin exam: normal color Neuro: Cranial nerves: Yes Normal hearing present Speech: normal speech Extrem: General: normal to inspection and no edema Psych: Affect: normal affect Objective Data Vital Signs Vital Signs: Vital Signs - 24 hr 10/04/19 14:00 10/04/19 21:25 10/04/19 22:00 Temperature 36.7 C 36.3 C L Pulse Rate 81 93 66 Respiratory Rate 18 18 Blood Pressure 124/65 158/81 H Pulse Oximetry 94 100 10/04/19 23:10 10/05/19 05:59 10/05/19 08:26 Temperature 36.8 C Pulse Rate 69 78 68 Respiratory Rate 16 20 Blood Pressure 132/56 L Pulse Oximetry 94 96 Intake/Output Intake/Output: Intake & Output 10/02/19 10/03/19 10/04/19 10/05/19 23:59 23:59 23:59 23:59 Intake Total 50 970 2280 240 Output Total 3750 2750 1800 Balance 50 -2110 -463 -7420 Meds/Results Medications: Active Medications Generic Name Dose Route Start Last Admin Trade Name Freq PRN Reason Stop Dose Admin Acetaminophen 650 mg 10/04/19 11:16 10/04/19 12:19 Tylenol Tablet PO 650 mg Q6H PRN Administration Mild Pain (1-3) or Fever Enoxapari
[2019-10-05] MEDS: ACETAMINOPHEN 325 MG TABLET 650 MG PO (12:52)
[2019-10-05 14:00] VITALS: BP 110/60; PULSE 81; RESP 18; TEMP 36.9; O2SAT 99
--- NOTE | 2019-10-05 15:32 | PM.IMPN ---
Progress Note: A&P Assessment and Plan (1) Shortness of breath: Code(s): R06.02 - Shortness of breath Status: Acute Assessment and Plan: Shortness of breath is chronic and only while supine He does not have any dyspnea on exertion, chest x-ray shows no evidence for volume overload, CTA chest is negative, and BNP is negative sleep apnea, and diastolic congestive heart failure may all be contributing factors. Cardiology input noted and appreciated Continue gentle diuresis with EF 40-45% and right-sided failure also present and started low-dose EARL-inhibitor (2) Chest pain: Qualifiers: Chest pain type: unspecified Qualified Code(s): R07.9 - Chest pain, unspecified Code(s): R07.9 - Chest pain, unspecified Status: Acute Assessment and Plan: Troponins are negative at baseline 3 hours and 6 hours and EKG shows no ischemic change Pulmonary CTA negative for emboli Is most likely that his pain is musculoskeletal as it is chronic intermittent and fairly random cardiology will evaluate for ischemia at a later time (3) UTI (urinary tract infection): Qualifiers: Hematuria presence: without hematuria Urinary tract infection type: site unspecified Qualified Code(s): N39.0 - Urinary tract infection, site not specified Code(s): N39.0 - Urinary tract infection, site not specified Status: Acute Assessment and Plan: This is been a recurring issue and thought related to stones (this is purportedly his 4th UTI in the past year) September 14 urine culture grew E coli sensitive to ceftriaxone today cultured returned ESBL E coli resistant to ceftriaxone. karl start ertapenem until d/c and transition to augmentin or quinolone (4) HTN (hypertension): Qualifiers: Hypertension type: essential hypertension Qualified Code(s): I10 - Essential (primary) hypertension Code(s): I10 - Essential (primary) hypertension Status: Acute Assessment and Plan: Continue home regimen and monitor (5) Anxiety: Code(s): F41.9 - Anxiety disorder, unspecified Status: Acute Assessment and Plan: It is unclear whether this is his primary issue or whether it is secondary to his dyspnea Monitor with gentle diuresis Consider adding an SSRI this issue persists despite adequate diuresis (6) JOSEFINA (obstructive sleep apnea): Code(s): G47.33 - Obstructive sleep apnea (adult) (pediatric) Status: Acute Assessment and Plan: Continue home BiPAP Subjective Date/time seen: 10/05/19 15:32 Interval history: Date of visit 10/05. 69-year-old hypertensive admitted with atypical chest pain shortness breath. Echo showed EF 40-45% right-sided failure and moderate pulmonary hypertension. Doing better with diuresis and does have a recurrent UTI. constipated also Exam Narrative: Exam Narrative: Blood pressure 132/56 pulse is 78 saturating 96% room air HEENT: EOMI, PERRL, NECK: No JVD supple CHEST: Clear to auscultation. Normal effort. HEART: NL S1/S2, regular, no murmur, no gallop ABDOMEN: BS+, soft, nontender, no mass, no bruits EXTREMITIES: No cyanosis, trace pretibial edema on right with venous stasis changes, left above knee amputation NEUROLOGIC: CN intact and symmetric to inspection. Objective Data Vital Signs Vital Signs: Vital Signs - 24 hr 10/04/19 21:25 10/04/19 22:00 10/04/19 23:10 Temperature 36.3 C L Pulse Rate 93 66 69 Respiratory Rate 18 16 Blood Pressure 158/81 H Pulse Oximetry 100 94 10/05/19 05:59 10/05/19 08:26 Temperature 36.8 C Pulse Rate 78 68 Respiratory Rate 20 Blood Pressure 132/56 L Pulse Oximetry 96 Intake/Output Intake/Output: Intake & Output 10/02/19 10/03/19 10/04/19 10/05/19 23:59 23:59 23:59 23:59 Intake Total 50 970 2280 530 Output Total 6682 5760 3319 Balance 45 -3987 -370 -9880 Meds/Results Medications: Active Medications Generic Name Dose Route Star
[2019-10-05] MEDS: ERTAPENEM 1 GM/NS 50 ML 1 GM/50 ML BAG IVPB (17:08)
--- NOTE | 2019-10-05 19:30 | PC.NURSE ---
Addendum entered by Kolby Bee RN 10/05/19 23:20: Patient is oriented and understands the fall risks. Original Note: Pt refusing bed and chair alarms. Risks explained to patient.
[2019-10-05 20:45] VITALS: PULSE 78
[2019-10-05] MEDS: SIMVASTATIN 20 MG TABLET 40 MG PO (20:45)
[2019-10-05] MEDS: TAMSULOSIN HCL 0.4 MG CAPSULE PO (20:46)
[2019-10-05] MEDS: MELATONIN 3 MG TABLET PO (21:05)
[2019-10-05 21:58] VITALS: BP 141/74; PULSE 106; RESP 20; TEMP 37.1; O2SAT 91
[2019-10-06] VITALS (11 sets, daily range): BP systolic 109–122; BP diastolic 53–70; PULSE 65–88; RESP 16–20; TEMP 36–36.9; O2SAT 92–99
--- NOTE | 2019-10-06 07:35 | P.CDI_ITS ---
CDI Query Clarification Request - sleep apnea, and diastolic congestive heart failure may all be contributing factors. Cardiology input noted and appreciated Continue gentle diuresis with EF 40-45% and right-sided failure also present and started low-dose EARL-inhibitor documented -Dr Foy documented Dyspnea is due to systolic CHF with EF 40-45% -echo with EF 40-45% and he left ventricular diastolic function is grade III diastolic dysfunction. Please further specify type of CHF: * Systolic * Diastolic * Systolic and diastolic * Unable to determine
[2019-10-06 08:22] LABS: Blood Urea Nitrogen 16 mg/dL (9-20); Calcium 8.8 mg/dL (8.4-10.2); Carbon Dioxide 30 mmol/L (22-30); Chloride 97 mmol/L (98-107); Estimated CRCL calculation 123 ml/min; Estimated Glomerular Filt Rate > 60; Glucose 115 mg/dL (75-110); Potassium 3.7 mmol/L (3.4-5.0); Sodium 139 mmol/L (137-145)
[2019-10-06] MEDS: lisinopriL 10 MG TABLET PO (09:47)
[2019-10-06] MEDS: PREGABALIN 75 MG CAPSULE 300 MG PO ×2 (09:47→20:49)
[2019-10-06] MEDS: METOPROLOL TARTRATE 50 MG TAB PO (09:53)
[2019-10-06] MEDS: PANTOPRAZOLE 40 MG TABLET PO ×2 (09:53→20:51)
--- NOTE | 2019-10-06 14:04 | PC.NURSE ---
Pt to cardiac cath per stretcher.
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
--- NOTE | 2019-10-06 14:41 | PM.PNCARD ---
Progress Note: A&P Assessment and Plan (1) Shortness of breath: Code(s): R06.02 - Shortness of breath Status: Acute Assessment and Plan: Dyspnea is due to systolic CHF with EF 40-45% Slowly improving Will increase Lasix dose to BID Also has evidence of right heart failure with h/o JOSEFINA. Consider repeat sleep study/up titration of CPAP as outpatient. cardiac catheterization today showed mild coronary disease with [id number] left ventricular systolic dysfunction continue with Coreg lisinopril and diuresis (2) Chest pain: Qualifiers: Chest pain type: unspecified Qualified Code(s): R07.9 - Chest pain, unspecified Code(s): R07.9 - Chest pain, unspecified Status: Acute Assessment and Plan: Atypical for angina cardiac catheterization done today showed no significant coronary disease, he has [id number] left ventricular systolic dysfunction EF 45%. (3) HTN (hypertension): Qualifiers: Hypertension type: essential hypertension Qualified Code(s): I10 - Essential (primary) hypertension Code(s): I10 - Essential (primary) hypertension Status: Acute Assessment and Plan: Fair control. Continue lisinopril and Coreg (4) JOSEFINA (obstructive sleep apnea): Code(s): G47.33 - Obstructive sleep apnea (adult) (pediatric) Status: Acute Assessment and Plan: Conintue CPAP Subjective Date/time seen: 10/06/19 14:41 Feeling better today, shortness of breath is better, no orthopnea, he underwent cardiac catheterization today, revealing no significant coronary artery disease, with mild to moderate left ventricular systolic dysfunction ejection fraction 45% Exam Const: General: no acute distress Eyes: Sclera: sclerae normal Neck: Neck: no JVD (Difficult to assess due to bodyhabiuts. 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 Trace edema on the right lower ext. Skin: General skin exam: normal color Neuro: Cranial nerves: Yes Normal hearing present Speech: normal speech Extrem: General: normal to inspection and no edema Psych: Affect: normal affect Objective Data Vital Signs Vital Signs: Vital Signs - 24 hr 10/05/19 20:45 10/05/19 21:58 10/06/19 05:58 Temperature 37.1 C 36.0 C L Pulse Rate 78 106 H 69 Respiratory Rate 20 18 Blood Pressure 141/74 H 114/55 L Pulse Oximetry 91 97 10/06/19 09:53 Temperature Pulse Rate 76 Respiratory Rate Blood Pressure Pulse Oximetry Intake/Output Intake/Output: Intake & Output 10/03/19 10/04/19 10/05/19 10/06/19 23:59 23:59 23:59 23:59 Intake Total 970 2280 1060 1040 Output Total 3750 2750 2600 1999 Balance -2780 -470 -1540 -960 Meds/Results Medications: Active Medications Generic Name Dose Route Start Last Admin Trade Name Freq PRN Reason Stop Dose Admin Acetaminophen 650 mg 10/04/19 11:16 10/05/19 12:52 Tylenol Tablet PO 650 mg Q6H PRN Administration Mild Pain (1-3) or Fever Carvedilol 12.5 mg 10/06/19 21:00 Coreg PO Q12HR LUCIA Furosemide 40 mg 10/05/19 17:00 10/05/19 18:03 Lasix Inj IV PUSH 40 mg BIDWM LUCIA Administration Ertapenem 1 gm in 50 mls @ 100 mls/hr 10/05/19 17:00 10/05/19 20:53 Invanz 1 Gm/Ns 50 Ml IVPB Infused Q24H LUCIA Infusion Lisinopril 10 mg 10/06/19 09:00 10/06/19 09:47 Prinivil PO 10 mg DAILY LUCIA Administration Melatonin 3 mg 10/03/19 21:04 10/05/19 21:05 Melatonin PO 3 mg HS PRN Administration Restless Pantoprazole Sodium 40 mg 10/03/19 09:00 10/06/19 09:53 Protonix PO 40 mg Q12HR LUCIA Administration Polyethylene Glycol 17 gm 10/05/19 15:20 10/05/19 16:26 Miralax PO Not Given QAM LUCIA Pre
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
--- NOTE | 2019-10-06 14:45 | SUR.PHASEII ---
BEGIN PHASE II RECOVERY. RETURNS FROM [facility] W/ DR. BUSH TO [facility] 7 VIA STRETCHER. A&OX4. DENIES PAIN OR SOB ON ARRIVAL. R. GROIN SITE SOFT, NONTENDER, NO BLEEDING OR HEMATOMA NOTED. ANGIOSEAL CLOSURE DEVICE DEPLOYED TO R. GROIN PUNCTURE SITE AT 1430 IN CCL. R. PEDAL PULSE EASILY PALP. VSS. BEDREST ACTIVITY RESTRICTIONS REVIEWED W/ PT. AND . BEDREST X 2 HOURS UNTIL 1630. PT. VOICED UNDERSTANDING OF ALL. WILL CONTINUE TO MONITOR.
--- NOTE | 2019-10-06 15:55 | SUR.PHASEII ---
END PHASE II RECOVERY. REPORT HAS BEEN CALLED TO PRIMARY RN AT 1530 BY CHARLES TOUSSAINT RN. NO CHANGE IN PT. ASSESSMENT. VSS. R. GROIN SITE REMAINS SOFT, NONTENDER. NO BLEEDING OR HEMATOMA NOTED. GUAZE AND TEGADERM DRESSING TO SITE C/D/I. R. PEDAL AND POST TIB PULSES PALP EASILY. RETURNED TO ROOM 310 VIA BED AT THIS TIME. NO DISTRESS NOTED.
[2019-10-06] MEDS: FUROSEMIDE INJ 40 MG/4 ML VIAL IV PUSH (16:49)
[2019-10-06] MEDS: ERTAPENEM 1 GM/NS 50 ML 1 GM/50 ML BAG IVPB (16:50)
--- NOTE | 2019-10-06 16:52 | PM.IMPN ---
Progress Note: A&P Assessment and Plan (1) Shortness of breath: Code(s): R06.02 - Shortness of breath Status: Acute Assessment and Plan: Shortness of breath is chronic and only while supine He does not have any dyspnea on exertion, chest x-ray shows no evidence for volume overload, CTA chest is negative, and BNP is negative sleep apnea, and diastolic congestive heart failure may all be contributing factors. Continue gentle diuresis with EF 40-45% and right-sided failure also present and started low-dose EARL-inhibitor (2) Chest pain: Qualifiers: Chest pain type: unspecified Qualified Code(s): R07.9 - Chest pain, unspecified Code(s): R07.9 - Chest pain, unspecified Status: Acute Assessment and Plan: Troponins are negative at baseline 3 hours and 6 hours and EKG shows no ischemic change Pulmonary CTA negative for emboli Is most likely that his pain is musculoskeletal as it is chronic intermittent and fairly random cardiology confirmed by catheterization today 10/06, revealing only 25% LAD and RCA lesions (3) UTI (urinary tract infection): Qualifiers: Hematuria presence: without hematuria Urinary tract infection type: site unspecified Qualified Code(s): N39.0 - Urinary tract infection, site not specified Code(s): N39.0 - Urinary tract infection, site not specified Status: Acute Assessment and Plan: This is been a recurring issue and thought related to stones (this is purportedly his 4th UTI in the past year) September 14 urine culture grew E coli sensitive to ceftriaxone 10/05 cultured returned ESBL E coli resistant to ceftriaxone. started ertapenem until d/c and transition to augmentin or quinolone (4) HTN (hypertension): Qualifiers: Hypertension type: essential hypertension Qualified Code(s): I10 - Essential (primary) hypertension Code(s): I10 - Essential (primary) hypertension Status: Acute Assessment and Plan: Continue home regimen and monitor well controlled with the beta-adonis and the EARL-inhibitor (5) Anxiety: Code(s): F41.9 - Anxiety disorder, unspecified Status: Acute Assessment and Plan: It is unclear whether this is his primary issue or whether it is secondary to his dyspnea Monitor with gentle diuresis (6) JOSEFINA (obstructive sleep apnea): Code(s): G47.33 - Obstructive sleep apnea (adult) (pediatric) Status: Acute Assessment and Plan: Continue home BiPAP Subjective Date/time seen: 10/06/19 16:52 Interval history: Date of visit 10/06. 69-year-old hypertensive admitted with atypical chest pain shortness breath. Echo showed EF 40-45% right-sided failure and moderate pulmonary hypertension. Doing better with diuresis and does have a recurrent UTI. Cath scheduled for today Exam Narrative: Exam Narrative: Blood pressure 132/56 pulse is 78 saturating 96% room air HEENT: EOMI, PERRL, NECK: No JVD supple CHEST: Clear to auscultation. Normal effort. HEART: NL S1/S2, regular, no murmur, no gallop ABDOMEN: BS+, soft, nontender, no mass, no bruits EXTREMITIES: No cyanosis, trace pretibial edema on right with venous stasis changes, left above knee amputation NEUROLOGIC: CN intact and symmetric to inspection. Objective Data Vital Signs Vital Signs: Vital Signs - 24 hr 10/05/19 20:45 10/05/19 21:58 10/06/19 05:58 Temperature 37.1 C 36.0 C L Pulse Rate 78 106 H 69 Respiratory Rate 20 18 Blood Pressure 141/74 H 114/55 L Pulse Oximetry 91 97 10/06/19 09:53 10/06/19 14:45 10/06/19 15:00 Temperature 36.6 C Pulse Rate 76 69 67 Respiratory Rate 20 20 Blood Pressure 120/70 121/59 L Pulse Oximetry 94 92 10/06/19 15:15 10/06/19 15:30 10/06/19 16:10 Temperature 36.9 C Pulse Rate 69 70 65 Respiratory Rate 20 20 16 Blood Pressure 122/63 109/62 115/56 L Pulse Oximetry 93 99 92 Intake/Output Intake/Output: Intake & Output
[2019-10-06] MEDS: carvediloL 12.5 MG TABLET PO (20:48)
[2019-10-06] MEDS: TAMSULOSIN HCL 0.4 MG CAPSULE PO (20:49)
[2019-10-06] MEDS: SIMVASTATIN 20 MG TABLET 40 MG PO (20:51)
--- NOTE | 2019-10-06 21:48 | PC.NURSE ---
Pt refusing bed and chair alarms. Risks explained to patient. Patient is oriented and understands the fall risks.
[2019-10-06] MEDS: MELATONIN 3 MG TABLET PO (22:36)
[2019-10-07 02:00] VITALS: BP 138/86; PULSE 41; RESP 20; TEMP 36.7; O2SAT 97
[2019-10-07 06:00] VITALS: BP 151/67; PULSE 94; RESP 20; TEMP 36.4; O2SAT 95
[2019-10-07 06:03] LABS: Basophils Percent Auto 0.6 % (0.2-1.2); Eosinophils Absolute Auto 0.3 K/mm3 (0-0.3); Eosinophils Percent Auto 4.3 % (0-4.4); Hematocrit 43.4 % (42.0-52.0); Hemoglobin 14.2 g/dL (14.0-18.0); Immature Granulocyte Absolute 0.02 K/mm3 (0.00-0.031); Immature Granulocyte Percent A 0.3 % (0-0.5); Lymphocytes Absolute Auto 2.14 K/mm3 (0.9-3.2); Lymphocytes Percent Auto 29.5 % (18.3-44.2); Mean Corpuscular HGB Conc 32.7 g/dl (32-36); Mean Corpuscular Hemoglobin 29.7 pg (26-34); Mean Corpuscular Volume 90.8 fl (80-100); Mean Platelet Volume 9.7 fl (7.4-10.4); Monocytes Absolute Auto 0.8 K/mm3 (0.1-0.6); Monocytes Percent Auto 11.4 % (2.6-8.5); Neutrophils Absolute Auto 3.9 K/mm3 (1.3-6.7); Neutrophils Percent Auto 53.9 % (45.5-73.1); Platelet Count Result 197 k/mm3 (150-375); Red Blood Count 4.78 M/mm3 (4.6-6.20); Red Cell Distribution Width 13.6 % (11.5-14.5); White Blood Count 7.3 K/mm3 (4.5-10.0)
[2019-10-07 06:15] LABS: Blood Urea Nitrogen 16 mg/dL (9-20); Calcium 8.8 mg/dL (8.4-10.2); Carbon Dioxide 30 mmol/L (22-30); Chloride 97 mmol/L (98-107); Estimated CRCL calculation 123 ml/min; Estimated Glomerular Filt Rate > 60; Glucose 111 mg/dL (75-110); Potassium 4.1 mmol/L (3.4-5.0); Sodium 139 mmol/L (137-145)
[2019-10-07] MEDS: PANTOPRAZOLE 40 MG TABLET PO (09:12)
[2019-10-07] MEDS: FUROSEMIDE INJ 40 MG/4 ML VIAL IV PUSH (09:12)
[2019-10-07] MEDS: PREGABALIN 75 MG CAPSULE 300 MG PO (09:12)
[2019-10-07] MEDS: lisinopriL 10 MG TABLET PO (09:12)
[2019-10-07] MEDS: polyethylene glycoL 3350 17 GM POWD.PACK PO (09:12)
[2019-10-07 09:17] VITALS: PULSE 80
[2019-10-07] MEDS: carvediloL 12.5 MG TABLET PO (09:17)
[2019-10-07] MEDS: ACETAMINOPHEN 325 MG TABLET 650 MG PO (11:39)
[2019-10-07] MEDS: ERTAPENEM 1 GM/NS 50 ML 1 GM/50 ML BAG IVPB (11:40)
--- NOTE | 2019-10-07 16:57 | PM.DS ---
DS: Diagnosis Admitting Diagnosis Admitting Diagnosis: Shortness of breath Discharge Diagnosis (1) Chest pain: Qualifiers: Chest pain type: unspecified Qualified Code(s): R07.9 - Chest pain, unspecified Code(s): R07.9 - Chest pain, unspecified Status: Acute Assessment and Plan: Troponins are negative at baseline 3 hours and 6 hours and EKG shows no ischemic change Pulmonary CTA negative for emboli Is most likely that his pain is musculoskeletal as it is chronic intermittent and fairly random cardiology confirmed by catheterization 10/06, revealing only 25% LAD and RCA lesions (2) UTI (urinary tract infection): Qualifiers: Hematuria presence: without hematuria Urinary tract infection type: site unspecified Qualified Code(s): N39.0 - Urinary tract infection, site not specified Code(s): N39.0 - Urinary tract infection, site not specified Status: Acute Assessment and Plan: This is been a recurring issue and thought related to stones (this is purportedly his 4th UTI in the past year) September 14 urine culture grew E coli sensitive to ceftriaxone 10/05 cultured returned ESBL E coli resistant to ceftriaxone. started ertapenem daily and receive 3 days of treatment had will receive 10 days of Cipro 500 b.i.d. for complicated UTI. Will follow-up with urologist 10/25 (3) HTN (hypertension): Qualifiers: Hypertension type: essential hypertension Qualified Code(s): I10 - Essential (primary) hypertension Code(s): I10 - Essential (primary) hypertension Status: Acute Assessment and Plan: Continue with the beta-adonis and the EARL-inhibitor (4) JOSEFINA (obstructive sleep apnea): Code(s): G47.33 - Obstructive sleep apnea (adult) (pediatric) Status: Acute Assessment and Plan: Continue home BiPAP (5) Heart failure, acute on chronic, systolic and diastolic: Code(s): I50.43 - Acute on chronic combined systolic (congestive) and diastolic (congestive) heart failure Status: Acute Assessment and Plan: Prented with SOB , Echo and cath 40-45% EF with grade 1-2 diastolic dysfunction. Beta-adonis changed to Coreg 12.5 b.i.d., EARL-inhibitor added, and diuretic Lasix 40 daily. He diuresed well here and was feeling much better with much improved shortness of breath but time of discharge. DS: Summary Hospital Course Hospital Course: 69-year-old hypertensive white male with obstructive sleep apnea admitted with increasing dyspnea on exertion and some orthopnea with shortness breath. [place] to be in heart failure and confirmed have mild acute on chronic combined systolic and diastolic heart failure. Repeat catheterization revealed only 25% LAD and RCA lesions. Diuresed and furosemide and EARL-inhibitor added to his beta-adonis which was changed to Coreg Will follow-up with primary care and within 2 weeks and have a basic metabolic profile drawn before Time Spent with Patient Time attestation: Total time spent providing and/or coordinating discharge services: Exam Narrative: Exam Narrative: Condition on discharge Blood pressure 150/66 pulse is 90 and regular Lungs clear CV regular rate rhythm no murmurs Abdomen is soft nontender Extremities without edema distal pulses 1+ on the right, left above knee amputation DS: Data Data Completed and Pending Labs on day of discharge: Labs from last 24 hours 10/07/19 10/07/19 05:44 05:44 WBC 7.3 RBC 4.78 Hgb 14.2 Hct 43.4 MCV 90.8 MCH 29.7 MCHC 32.7 RDW 13.6 Plt Count 197 MPV 9.7 Immature Gran % (Auto) 0.3 Neut % (Auto) 53.9 Lymph % (Auto) 29.5 [place] % (Auto) 11.4 H Eos % (Auto) 4.3 Baso % (Auto) 0.6 Lymph # (Auto) 2.14 [place] # (Auto) 0.8 H Eos # (Auto) 0.3 Baso # (Auto) 0.0 Abs Immat Gran (auto) 0.02 Absolute Neuts (auto) 3.9 Absolute Nucleated RBC 0.0 Nucleated RBC % 0.0 Sodium 139 Potassium 4.1 Chlo
== END 2019-10-07 13:35 | disposition home or self-care (01) | DRG 287 ==
LOC: ANHED 10-03 00:13 → ANHICU 10-03 00:41 → ANH3MEDSUR 10-03 22:26
PROVIDERS: Internal Medicine; Specialist; Admitting Provider Internal Medicine; Emergency Provider Emergency Medicine; PCP Family Medicine; Visit Provider Internal Medicine
PROC: 4A023N7 Measurement of Cardiac Sampling and Pressure, Left Heart, Percutaneous Approach (ICD-10-PCS; CPT 93452; principal; 2019-10-06 14:00)
PROC: 4A023N7 Measurement of Cardiac Sampling and Pressure, Left Heart, Percutaneous Approach (ICD-10-PCS; 2019-10-06 14:00)
DX: I11.0 Hypertensive heart disease with heart failure (principal); N39.0 Urinary tract infection, site not specified; Z16.19 Resistance to other specified beta lactam antibiotics; Z68.41 Body mass index [BMI] 40.0-44.9, adult; B96.20 Unspecified Escherichia coli [E. coli] as the cause of diseases classified elsewhere; I50.43 Acute on chronic combined systolic (congestive) and diastolic (congestive) heart failure; R07.89 Other chest pain; I25.10 Atherosclerotic heart disease of native coronary artery without angina pectoris; E78.5 Hyperlipidemia, unspecified; G47.33 Obstructive sleep apnea (adult) (pediatric); N40.0 Benign prostatic hyperplasia without lower urinary tract symptoms; K21.9 Gastro-esophageal reflux disease without esophagitis; M19.90 Unspecified osteoarthritis, unspecified site; F17.290 Nicotine dependence, other tobacco product, uncomplicated; E66.9 Obesity, unspecified; Z89.612 Acquired absence of left leg above knee
CPT/HCPCS: 36415; 71045; 71275; 80048; 81001; 83880; 84443; 84484; 85025; 85610; 85730; 87077; 87086; 87088; 87186; 87804; 93005; 93458; 96365; 96372; 96375; 96376; 99285; A9270; C1760; C1887; C1894; C8929; G0269; G0378; J0696; J1335; J1644; J1650; J1940; J2250; J3010; J7040; Q9957; Q9967

== ENCOUNTER 2021-07-26 22:28 | Observation (INO) | payer OTHER, SELFPAY ==
--- NOTE | ~2021-07-26 | XR_ITS ---
EXAMINATION: XR chest 2V DATE: 07/28/2021 13:21 INDICATION: Cough. Dyspnea on exertion. TECHNIQUE: Frontal and lateral views of the chest were obtained. COMPARISON: Chest single view 07/27/2021, chest CT 10/02/2019 FINDINGS: The lung volumes are normal. There are reticular opacities in the mid and lower lung zones. No pleural effusion or pneumothorax. The heart size is normal. IMPRESSION: 1. Reticular opacities in the mid and lower lung zones, consistent with mild pulmonary edema versus a typical pneumonia versus mild chronic interstitial lung disease. Reviewed, dictated and finalized at location A. [facility]ANGER IMPRESSION: 1. Reticular opacities in the mid and lower lung zones, consistent with mild pu lmonary edema versus atypical pneumonia versus mild chronic interstitial lung d isease.
--- NOTE | ~2021-07-26 | XR_ITS ---
EXAMINATION: XR chest 1V portable DATE: 07/27/2021 02:54 INDICATION: Fever and shortness of breath. TECHNIQUE: A single frontal view of the chest was obtained on 2 radiographs. COMPARISON: Chest single view 10/02/2019, chest CT 10/02/2019 FINDINGS: Sensitivity is decreased by obesity. There are mild airspace opacities in the mid and lower lung zones. No pleural effusion or pneumothorax. The heart size is normal. IMPRESSION: 1. Mild airspace opacities in the mid and lower lung zones, consistent with atelectasis versus pneumo lupe. Reviewed, dictated and finalized at location A. INSPECTOR IMPRESSION: 1. Mild airspace opacities in the mid and lower lung zones, consistent with ate lectasis versus pneumonia.
[2021-07-26 22:45] VITALS: BP 116/67; PULSE 100; RESP 20; TEMP 39.3; O2SAT 93
[2021-07-26 23:57] VITALS: BP 133/88; PULSE 88; RESP 14; TEMP 38.5; O2SAT 99
[2021-07-27] VITALS (14 sets, daily range): BP systolic 102–142; BP diastolic 47–76; PULSE 78–100; RESP 15–40; TEMP 36.1–39.6; O2SAT 89–98; BMI 43.3
[2021-07-27 01:43] LABS: Add Urine Microscopic? YES; Appearance Urine Cloudy (Clear); Bacteria Urine 3+ /hpf; Bilirubin Urine Negative (Negative); Blood Urine 2+ (Negative); Color Urine Yellow (Yellow); Glucose Urine UA 3+ mg/dL (Negative); Ketones Urine 1+ mg/dL (Negative); Leukocyte Esterase Ur 2+ LEU/UL (Negative); Mucus Urine Rare /lpf; Nitrate Urine Positive (Negative); Protein Urine 2+ mg/dL (Negative); Specific Grav Ur 1.021 (1.001-1.035); Squamous Epithelial Cell Urine Rare /hpf (Few); WBC Clumps Urine Present /HPF; WBC Urine >75 /hpf
--- NOTE | 2021-07-27 01:44 | PC.NURSE ---
Pt placed on 2 L NC O2 due to RR 40 and 89% on room air. Increased WOB noted.
[2021-07-27] MEDS: SODIUM CHLORIDE 0.9% IV 1,000 ML 999 ML IV CONT (01:52)
--- NOTE | 2021-07-27 01:59 | PC.NURSE ---
Pt repositioned upright, 100% on 2 L NC O2. RR 36 Phlebotomy at bedside for lab draw at this time.
[2021-07-27 02:04] LABS: Basophils Percent Auto 0.3 % (0.2-1.2); Eosinophils Percent Auto 0.1 % (0-4.4); Hematocrit 43.8 % (42.0-52.0); Hemoglobin 14.8 g/dL (14.0-18.0); Immature Granulocyte Absolute 0.06 K/mm3 (0.00-0.031); Immature Granulocyte Percent A 0.4 % (0-0.5); Lymphocytes Absolute Auto 1.12 K/mm3 (0.9-3.2); Lymphocytes Percent Auto 7.9 % (18.3-44.2); Mean Corpuscular HGB Conc 33.8 g/dl (32-36); Mean Corpuscular Hemoglobin 31.2 pg (26-34); Mean Corpuscular Volume 92.4 fl (80-100); Mean Platelet Volume 9.3 fl (7.4-10.4); Monocytes Absolute Auto 1.5 K/mm3 (0.1-0.6); Monocytes Percent Auto 10.8 % (2.6-8.5); Neutrophils Absolute Auto 11.4 K/mm3 (1.3-6.7); Neutrophils Percent Auto 80.5 % (45.5-73.1); Platelet Count Result 189 k/mm3 (150-375); Red Blood Count 4.74 M/mm3 (4.6-6.20); White Blood Count 14.2 K/mm3 (4.5-10.0)
[2021-07-27 02:15] LABS: Alanine Aminotransferase 28 U/L (4-50); Albumin Level 4.2 g/dL (3.5-5.1); Alkaline Phosphatase 79 U/L (38-126); Anion Gap 10 mmol/L (8-16); Aspartate Amino Transferase 32 U/L (17-59); Bilirubin,Total 0.8 mg/dL (0.2-1.3); Blood Urea Nitrogen 22 mg/dL (9-20); Calcium 9.2 mg/dL (8.4-10.2); Carbon Dioxide 29 mmol/L (22-30); Chloride 98 mmol/L (98-107); Estimated CRCL calculation 98 ml/min; Estimated Glomerular Filt Rate > 60; Glucose 150 mg/dL (65-110); Potassium 4.2 mmol/L (3.4-5.0); Sodium 137 mmol/L (137-145)
[2021-07-27 02:15] LABS: Lactic Acid Reflex 1.5 mmol/L (0.7-2.1)
[2021-07-27] MEDS: IBUPROFEN IV 800 MG/200 ML 800 MG/200 ML BAG 400 MG IVPB (02:51)
[2021-07-27] MEDS: ALBUTEROL SULFATE NEB 2.5 MG/0.5 ML INH 5 MG INHALATION (02:57)
[2021-07-27] MEDS: IPRATROPIUM BR 0.02% INH SOLN 0.5 MG/2.5 ML VIAL INHALATION (02:57)
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
[2021-07-27] MEDS: SODIUM CHLORIDE 0.9% IV 1,000 ML 125 ML IV CONT ×3 (05:15→21:07)
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
--- NOTE | 2021-07-27 15:57 | ADMGEN ---
This patient, Mario Shore, was admitted to [facility] Room 305-01 at 1545. Patient/family oriented to hospital policies and general routines including ID bracelet, bed and alarms, visiting hours, pain management, procedures, bathroom and other care routines, personal items, smoking policy, room service/diet, and visiting hours. Information on how to activate the Rapid Response Team has been discussed. Patient/Family are encouraged to report perceived risks to care and to ask questions if they do not understand what they are told or what they should do.
[2021-07-27 16:57] LABS: Glucose Point of Care 142 mg/dl (65-105)
[2021-07-27] MEDS: PREGABALIN (*CRX) 75 MG CAPSULE 300 MG PO (17:09)
[2021-07-27] MEDS: PANTOPRAZOLE 40 MG TABLET PO (17:09)
[2021-07-27] MEDS: SIMVASTATIN 20 MG TABLET 40 MG PO (20:37)
[2021-07-27] MEDS: oxyCODONE HCL (*CRX) 5 MG TAB IR PO (20:41)
[2021-07-27] MEDS: oxyCODONE/ACETAMINOPHEN (*CRX) 5-325 MG TABLET 1 TABLET PO (20:42)
[2021-07-27] MEDS: carvediloL 12.5 MG TABLET PO (21:05)
[2021-07-28] VITALS (7 sets, daily range): BP systolic 116–125; BP diastolic 47–71; PULSE 72–98; RESP 18–22; TEMP 36.4–36.8; O2SAT 93–100
[2021-07-28 03:09] LABS: Glucose Point of Care 154 mg/dl (65-105)
[2021-07-28 06:43] LABS: Hematocrit 40.2 % (42.0-52.0); Hemoglobin 13.2 g/dL (14.0-18.0); Mean Corpuscular HGB Conc 32.8 g/dl (32-36); Mean Corpuscular Hemoglobin 30.5 pg (26-34); Mean Corpuscular Volume 92.8 fl (80-100); Mean Platelet Volume 9.4 fl (7.4-10.4); Platelet Count Result 179 k/mm3 (150-375); Red Blood Count 4.33 M/mm3 (4.6-6.20); Red Cell Distribution Width 13.9 % (11.5-14.5); White Blood Count 10.6 K/mm3 (4.5-10.0)
[2021-07-28 06:58] LABS: Lactic Acid Reflex 1.4 mmol/L (0.7-2.1)
[2021-07-28] MEDS: EMPAGLIFLOZIN 10 MG TABLET BY MOUTH (07:59)
[2021-07-28] MEDS: PANTOPRAZOLE 40 MG TABLET PO ×2 (07:59→17:21)
[2021-07-28] MEDS: TRIMETHOPRIM 100 MG TABLET PO (08:00)
[2021-07-28] MEDS: carvediloL 12.5 MG TABLET PO ×2 (08:00→20:47)
[2021-07-28] MEDS: PREGABALIN (*CRX) 75 MG CAPSULE 300 MG PO ×2 (08:02→17:21)
[2021-07-28] MEDS: FUROSEMIDE 40 MG TABLET PO (08:03)
[2021-07-28 08:21] LABS: Glucose Point of Care 117 mg/dl (65-105)
[2021-07-28 08:26] LABS: Alanine Aminotransferase 23 U/L (4-50); Albumin Level 3.3 g/dL (3.5-5.1); Alkaline Phosphatase 64 U/L (38-126); Anion Gap 11 mmol/L (8-16); Aspartate Amino Transferase 29 U/L (17-59); Bilirubin,Total 0.5 mg/dL (0.2-1.3); Blood Urea Nitrogen 17 mg/dL (9-20); CRP 31.1 mg/dL (<1.0); Calcium 8.8 mg/dL (8.4-10.2); Carbon Dioxide 23 mmol/L (22-30); Chloride 102 mmol/L (98-107); Estimated CRCL calculation 123 ml/min; Estimated Glomerular Filt Rate > 60; Glucose 131 mg/dL (65-110); Magnesium 2.2 mg/dL (1.6-2.3); Potassium 3.6 mmol/L (3.4-5.0); Sodium 136 mmol/L (137-145)
[2021-07-28 08:33] LABS: Hemoglobin A1C 6.6 % (<5.7)
--- NOTE | 2021-07-28 09:07 | PM.IMPN ---
Progress Note: A&P Assessment and Plan (1) UTI (urinary tract infection): Qualifiers: Hematuria presence: without hematuria Urinary tract infection type: site unspecified Qualified Code(s): N39.0 - Urinary tract infection, site not specified Code(s): N39.0 - Urinary tract infection, site not specified Status: Acute Assessment and Plan: At increased risk for Urosepsis monitoring Neuro status Q Shift ordered PT/OT. Continue IV Rocephin. Would not discharge until urine and blood culture results, as this patient has a history of 2 past hospital admissions with Urosepsis including an ICU stay. WBC is improving from 14.2 to 10.6 today. Will need to F/U with his Urologist after discharge. May also need to F/U with Infectious Disease due to repeat serious UTIs. stopped IV fluids today, as patient is tolerating PO fluids well, and has history of CHF. strict I/Os. daily weights. (2) HTN (hypertension): Qualifiers: Hypertension type: essential hypertension Qualified Code(s): I10 - Essential (primary) hypertension Code(s): I10 - Essential (primary) hypertension Status: Acute Assessment and Plan: Continue with Lasix and Coreg, lisinopri - held due to dry cough patient's low blood pressure yesterday ,has improved today, 125/71 today with HR 90-100. monitor VS (3) JOSEFINA (obstructive sleep apnea): Code(s): G47.33 - Obstructive sleep apnea (adult) (pediatric) Status: Acute Assessment and Plan: Patient brought his own CPAP he can continue with that. no new concerns or O2 requirements. CXR 2 view today (4) Anxiety: Code(s): F41.9 - Anxiety disorder, unspecified Status: Acute Assessment and Plan: Continue with home medications. no concerns noted at this time (5) Heart failure, acute on chronic, systolic and diastolic: Code(s): I50.43 - Acute on chronic combined systolic (congestive) and diastolic (congestive) heart failure Status: Acute Assessment and Plan: Continue with Coreg lisinopril - held due to dry cough continue Lasix checking BNP CXR 2 view today VS stable , no increasing O2 requirements. (6) Hypercholesteremia: Code(s): E78.00 - Pure hypercholesterolemia, unspecified Status: Acute Assessment and Plan: Continue with simvastatin no new concerns (7) Chronic pain: Code(s): G89.29 - Other chronic pain Status: Chronic Assessment and Plan: Patient has chronic left leg phantom pain. He is on oxycodone and Lyrica. He also is on ibuprofen and he is no longer taking meloxicam. no new concerns today (8) DM2 (diabetes mellitus, type 2): Code(s): E11.9 - Type 2 diabetes mellitus without complications Status: Chronic Assessment and Plan: Accu-Cheks AC and HS continue with farxiga. Check A1c. Sliding scale insulin. glucose 117, 131 a1c 6.6 today (9) Cough: Code(s): R05.9 - Cough, unspecified Status: Acute Assessment and Plan: He is reporting a dry cough with deep breathing and this was evident on exam as well. Will hold the lisinopril. get a 2 view CXR as the 1 view was inconsistent. repeat his ECHO, as his EF 40% 2019. severe obesity with deconditioning due to his immobility - dietary consult and PT/OT. Subjective Date/time seen: 07/28/21 09:07 Mario feeling better today, alert and oriented x 3, moving about his bed with some weakness and difficulty yet. His is at his bedside. Last night, patient was still having nonsense speech with altered mental status. This morning AMS improved, but still weak and poor energy/stamina. Will need PT/OT. Continue IV Rocephin. He did have chills and feel feverish last night, but not today. Would not discharge until urine and blood culture results, as this patient has a history of 2 past hospital admissions with Urosepsis including an ICU stay. His WBC is improving from 14.2
[2021-07-28] MEDS: lisinopriL 5 MG TABLET PO (12:13)
[2021-07-28 12:28] LABS: Glucose Point of Care 131 mg/dl (65-105)
[2021-07-28] MEDS: ACETAMINOPHEN 325 MG TABLET 650 MG PO (14:42)
[2021-07-28 16:50] LABS: Glucose Point of Care 126 mg/dl (65-105)
[2021-07-28] MEDS: ALBUTEROL SULFATE NEB 2.5 MG/0.5 ML INH INHALATION (20:24)
[2021-07-28] MEDS: SIMVASTATIN 20 MG TABLET 40 MG PO (20:47)
[2021-07-28 22:27] LABS: Glucose Point of Care 129 mg/dl (65-105)
[2021-07-29] VITALS (12 sets, daily range): BP systolic 104–120; BP diastolic 69–71; PULSE 72–84; RESP 18; TEMP 36.5–36.8; O2SAT 92–96
--- NOTE | 2021-07-29 | ECHO_ITS ---
Patient Info Name: Mario Shore Age: 71 years : 1950 Gender: Male Ht: 72 in Wt: 319 lbs BSA: 2.78 m2 HR: 78 bpm BP: 122 / 66 mmHg Heart Rhythm: Sinus Rhythm Technical Quality: Poor Exam Date: 07/29/2021 11:28 AM Exam Location: [facility] Pulmonary Exam Room: 305 Patient Status: Inpatient Admit Date: 07/27/2021 Staff Ordering Physician: Lenora Srivastava NP Brim Stretcher: Vandana Marcum RDCS Attending Provider: Megan Gross PA-C Referring Physician: Atif OSORIO; Exam Type: CA echo dop color flow w con Study Info Indications - dyspnea with exertion Complete two-dimensional, color flow and Doppler transthoracic echocardiogram is performed with contrast to opacify the left ventricle and to improve the deliniation of the left ventricle endocardial borders. Reason for Poor Study: patient body habitus Summary 1. Definity contrast injected to improve visualization. 2. Left ventricular systolic function is normal, estimated at 50-55%. 3. The left ventricular diastolic function is grade I diastolic dysfunction. 4. Right ventricular chamber dimension is mildly enlarged. 5. There is mild aortic valve sclerosis. 6. The mitral valve annulus is mildly calcified. 7. Technically difficult exam. Left Ventricle Left ventricular chamber dimension is normal. Left ventricular systolic function is normal, estimated at 50-55%. The left ventricular diastolic function is grade I diastolic dysfunction. Definity contrast injected to improve visualization. Right Ventricle Right ventricular chamber dimension is mildly enlarged. Left Atria Left atrial chamber dimension is mildly enlarged. Right Atria Right atrial chamber dimension is normal. Aortic Valve The aortic valve is trileaflet. There is mild aortic valve sclerosis. Pulmonic Valve The pulmonic valve is not well visualized. Mitral Valve The mitral valve has normal leaflets. The mitral valve annulus is mildly calcified. Tricuspid Valve The tricuspid valve leaflets are not well visualized. Pericardium/Pleural The pericardium appears normal. Aorta The aortic root size at the sinus of Valsalva is normal. Left Ventricular Outflow Tract Name Value Normal LVOT 2D LVOT Diameter 2.18 cm LVOT Doppler LVOT Peak Gradient 4 mmHg LVOT Mean Gradient 2 mmHg LVOT VTI 22.19 cm LVOT VTI/AV VTI Ratio 0.97 LVOT Stroke Volume 83.00 ml LVOT CO 16.67 l/min LVOT CI 6.00 L/min/m2 Pulmonic Valve Name Value Normal PV Doppler PV Peak Gradient 5 mmHg Mitral Valve Name
[2021-07-29] MEDS: ALBUTEROL SULFATE NEB 2.5 MG/0.5 ML INH INHALATION ×3 (02:00→14:24)
[2021-07-29 06:18] LABS: Hemoglobin 13.2 g/dL (14.0-18.0); Mean Corpuscular HGB Conc 33.8 g/dl (32-36); Mean Corpuscular Volume 91.5 fl (80-100); Mean Platelet Volume 9.7 fl (7.4-10.4); Platelet Count Result 202 k/mm3 (150-375); Red Blood Count 4.26 M/mm3 (4.6-6.20); White Blood Count 7.3 K/mm3 (4.5-10.0)
[2021-07-29 06:19] LABS: Anion Gap 8 mmol/L (8-16); Blood Urea Nitrogen 15 mg/dL (9-20); Calcium 8.9 mg/dL (8.4-10.2); Carbon Dioxide 25 mmol/L (22-30); Chloride 101 mmol/L (98-107); Estimated CRCL calculation 123 ml/min; Estimated Glomerular Filt Rate > 60; Glucose 127 mg/dL (65-110); Potassium 3.3 mmol/L (3.4-5.0); Sodium 134 mmol/L (137-145)
[2021-07-29 06:28] LABS: NT Pro B Type Natriuretic Pept 136 pg/mL (5-100)
[2021-07-29 07:51] LABS: Glucose Point of Care 125 mg/dl (65-105)
[2021-07-29] MEDS: TRIMETHOPRIM 100 MG TABLET PO (09:21)
[2021-07-29] MEDS: carvediloL 12.5 MG TABLET PO ×2 (09:21→20:31)
[2021-07-29] MEDS: EMPAGLIFLOZIN 10 MG TABLET BY MOUTH (09:21)
[2021-07-29] MEDS: PANTOPRAZOLE 40 MG TABLET PO ×2 (09:21→16:44)
[2021-07-29] MEDS: FUROSEMIDE 40 MG TABLET PO (09:21)
[2021-07-29] MEDS: PREGABALIN (*CRX) 75 MG CAPSULE 300 MG PO ×2 (09:24→16:44)
[2021-07-29] MEDS: ACETAMINOPHEN 325 MG TABLET 650 MG PO (09:24)
[2021-07-29] MEDS: POTASSIUM CHLORIDE 20 MEQ TABLET PO (09:24)
[2021-07-29] MEDS: MUPIROCIN 2% OINT 22 GM TUBE 1 APPLIC TOPICAL (12:00)
--- NOTE | 2021-07-29 13:38 | P.PNIM_ITS ---
Progress Note: A&P Assessment and Plan (1) UTI (urinary tract infection): Qualifiers: Hematuria presence: without hematuria Urinary tract infection type: site unspecified Qualified Code(s): N39.0 - Urinary tract infection, site not specified Code(s): N39.0 - Urinary tract infection, site not specified Status: Acute Assessment and Plan: History of recurrent UTIs, established with urology. Presented with increased confusion and fever. * Urine culture with growth of >100k ESBL. * Received IV Rocephin, will discontinue today based on susceptibilities * Begin IV ertapenem * Hopeful discharge tomorrow after 2 doses of appropriate IV antibiotics. Will plan to transition to p.o. Augmentin based on susceptibilities and completely 7 days of antibiotic therapy. * Blood cultures pending, negative to date. Will monitor closely given his history of urosepsis * Leukocytosis has resolved. Patient remains afebrile today. * Hold prophylactic trimethoprim while treating acute UTI (2) HTN (hypertension): Qualifiers: Hypertension type: essential hypertension Qualified Code(s): I10 - Essential (primary) hypertension Code(s): I10 - Essential (primary) hypertension Status: Acute Assessment and Plan: Blood pressure reviewed and has been stable on the low end of normal. Last BP 122/66 * Continue carvedilol * Lisinopril has been held. See below * Monitor blood pressure trends and adjust medication regimen as needed (3) CHF (congestive heart failure): Code(s): I50.9 - Heart failure, unspecified Status: Acute Assessment and Plan: Last echo September 2019 with mildly reduced EF of 40 45%. CXR findings nonspecific, may indicate mild pulmonary edema. BNP is 136. He appears generally euvolemic on exam * Repeat echo completed, awaiting interpretation * Continue home p.o. Lasix 40 mg (4) JOSEFINA (obstructive sleep apnea): Code(s): G47.33 - Obstructive sleep apnea (adult) (pediatric) Status: Acute Assessment and Plan: Continue home CPAP (5) DM2 (diabetes mellitus, type 2): Code(s): E11.9 - Type 2 diabetes mellitus without complications Status: Chronic Assessment and Plan: A1c is 6.6. Blood sugars have been well controlled * Continue home Farxiga * Continue Accu-Cheks, sliding scale insulin, hypoglycemic protocol (6) Cough: Code(s): R05.9 - Cough, unspecified Status: Acute Assessment and Plan: Patient complains of persistent dry cough. Reports improvement today * Etiology not entirely clear. CXR reviewed with mild reticular opacities. Clinical symptoms not consistent with pneumonia. * Reports improvement with use of incentive spirometer. Continue * Lisinopril has been held. Doubt that this is related given long-term lisinopril use, however based on his blood pressure trends will continue to hold at this time. * Echo pending as above (7) Hypokalemia: Code(s): E87.6 - Hypokalemia Status: Acute Assessment and Plan: Potassium 3.3 today * 20 mEq p.o. KCl administered * Repeat BMP tomorrow Subjective Date/time seen: 07/29/21 13:38 Interval history: Date of service: 07/29/2021 Mario Shore is a 71 year old male with a history of BPH, recurrent UTI, HTN, JOSEFINA, type 2 DM, and JOSEFINA who is is seen in follow up for UTI. He is feeling better today. He does endorse urinary frequency and hesitancy. Denies dysuria. No hematuria. No N/V, f
--- NOTE | 2021-07-29 13:38 | PM.IMPN ---
Progress Note: A&P Assessment and Plan (1) UTI (urinary tract infection): Qualifiers: Hematuria presence: without hematuria Urinary tract infection type: site unspecified Qualified Code(s): N39.0 - Urinary tract infection, site not specified Code(s): N39.0 - Urinary tract infection, site not specified Status: Acute Assessment and Plan: History of recurrent UTIs, established with urology. Presented with increased confusion and fever. Urine culture with growth of >100k ESBL. Received IV Rocephin, will discontinue today based on susceptibilities Begin IV ertapenem Hopeful discharge tomorrow after 2 doses of appropriate IV antibiotics. Will plan to transition to p.o. Augmentin based on susceptibilities and completely 7 days of antibiotic therapy. Blood cultures pending, negative to date. Will monitor closely given his history of urosepsis Leukocytosis has resolved. Patient remains afebrile today. Hold prophylactic trimethoprim while treating acute UTI (2) HTN (hypertension): Qualifiers: Hypertension type: essential hypertension Qualified Code(s): I10 - Essential (primary) hypertension Code(s): I10 - Essential (primary) hypertension Status: Acute Assessment and Plan: Blood pressure reviewed and has been stable on the low end of normal. Last BP 122/66 Continue carvedilol Lisinopril has been held. See below Monitor blood pressure trends and adjust medication regimen as needed (3) CHF (congestive heart failure): Code(s): I50.9 - Heart failure, unspecified Status: Acute Assessment and Plan: Last echo September 2019 with mildly reduced EF of 40 45%. CXR findings nonspecific, may indicate mild pulmonary edema. BNP is 136. He appears generally euvolemic on exam Repeat echo completed, awaiting interpretation Continue home p.o. Lasix 40 mg (4) JOSEFINA (obstructive sleep apnea): Code(s): G47.33 - Obstructive sleep apnea (adult) (pediatric) Status: Acute Assessment and Plan: Continue home CPAP (5) DM2 (diabetes mellitus, type 2): Code(s): E11.9 - Type 2 diabetes mellitus without complications Status: Chronic Assessment and Plan: A1c is 6.6. Blood sugars have been well controlled Continue home Farxiga Continue Accu-Cheks, sliding scale insulin, hypoglycemic protocol (6) Cough: Code(s): R05.9 - Cough, unspecified Status: Acute Assessment and Plan: Patient complains of persistent dry cough. Reports improvement today Etiology not entirely clear. CXR reviewed with mild reticular opacities. Clinical symptoms not consistent with pneumonia. Reports improvement with use of incentive spirometer. Continue Lisinopril has been held. Doubt that this is related given long-term lisinopril use, however based on his blood pressure trends will continue to hold at this time. Echo pending as above (7) Hypokalemia: Code(s): E87.6 - Hypokalemia Status: Acute Assessment and Plan: Potassium 3.3 today 20 mEq p.o. KCl administered Repeat BMP tomorrow Subjective Date/time seen: 07/29/21 13:38 Interval history: Date of service: 07/29/2021 Mario Shore is a 71 year old male with a history of BPH, recurrent UTI, HTN, JOSEFINA, type 2 DM, and JOSEFINA who is is seen in follow up for UTI. He is feeling better today. He does endorse urinary frequency and hesitancy. Denies dysuria. No hematuria. No N/V, fever, chills. Appetite is good. He is drinking plenty of fluids. He does endorse dry cough but feels it is improving. States he is somewhat short of breath. Denies HULL, palpitations, chest pain. He has been having loose stools since starting antibiotics. No abdominal pain. His is present with him. Review of Systems Review of Systems: All systems reviewed & are unremarkable except as noted in HPI and below Exam Narrative: Mr. Shore is
[2021-07-29] MEDS: ERTAPENEM 1 GM/NS 50 ML 1 GM/50 ML BAG IVPB (14:59)
[2021-07-29 17:01] LABS: Glucose Point of Care 126 mg/dl (65-105)
[2021-07-29 18:51] LABS: Glucose Point of Care 162 mg/dl (65-105)
[2021-07-29] MEDS: SIMVASTATIN 20 MG TABLET 40 MG PO (20:31)
[2021-07-29 22:02] LABS: Glucose Point of Care 137 mg/dl (65-105)
[2021-07-30 02:02] VITALS: PULSE 71; O2SAT 94
[2021-07-30 06:00] VITALS: BP 119/56; PULSE 69; RESP 16; TEMP 36.5; O2SAT 96
[2021-07-30 06:03] LABS: Hematocrit 39.8 % (42.0-52.0); Hemoglobin 13.1 g/dL (14.0-18.0); Mean Corpuscular HGB Conc 32.9 g/dl (32-36); Mean Corpuscular Hemoglobin 30.3 pg (26-34); Mean Corpuscular Volume 91.9 fl (80-100); Mean Platelet Volume 9.5 fl (7.4-10.4); Platelet Count Result 221 k/mm3 (150-375); Red Blood Count 4.33 M/mm3 (4.6-6.20); Red Cell Distribution Width 13.9 % (11.5-14.5); White Blood Count 6.5 K/mm3 (4.5-10.0)
[2021-07-30 06:26] LABS: Anion Gap 7 mmol/L (8-16); Blood Urea Nitrogen 16 mg/dL (9-20); Calcium 8.8 mg/dL (8.4-10.2); Carbon Dioxide 27 mmol/L (22-30); Chloride 104 mmol/L (98-107); Estimated CRCL calculation 123 ml/min; Estimated Glomerular Filt Rate > 60; Glucose 124 mg/dL (65-110); Potassium 3.7 mmol/L (3.4-5.0); Sodium 138 mmol/L (137-145)
[2021-07-30 08:01] LABS: Glucose Point of Care 129 mg/dl (65-105)
[2021-07-30] MEDS: PREGABALIN (*CRX) 75 MG CAPSULE 300 MG PO (09:47)
[2021-07-30] MEDS: MUPIROCIN 2% OINT 22 GM TUBE 1 APPLIC TOPICAL (09:48)
[2021-07-30 09:50] VITALS: PULSE 70
[2021-07-30] MEDS: carvediloL 12.5 MG TABLET PO (09:50)
[2021-07-30] MEDS: FUROSEMIDE 40 MG TABLET PO (09:50)
[2021-07-30] MEDS: EMPAGLIFLOZIN 10 MG TABLET BY MOUTH (09:51)
[2021-07-30] MEDS: PANTOPRAZOLE 40 MG TABLET PO (09:51)
[2021-07-30] MEDS: ACETAMINOPHEN 325 MG TABLET 650 MG PO (09:54)
[2021-07-30 11:28] LABS: Glucose Point of Care 153 mg/dl (65-105)
--- NOTE | 2021-07-30 12:06 | PM.DS ---
DS: Admitting Diagnosis Discharge Date 07/30/2021 Admitting Diagnosis UTI DS: Discharge Diagnosis Discharge Diagnosis (1) UTI (urinary tract infection): Qualifiers: Hematuria presence: without hematuria Urinary tract infection type: site unspecified Qualified Code(s): N39.0 - Urinary tract infection, site not specified Code(s): N39.0 - Urinary tract infection, site not specified Status: Acute Assessment and Plan: History of recurrent UTIs, established with urology. Presented with increased confusion and fever. Initially started on Rocephin. Urine culture with growth of >100k ESBL, resistant to Rocephin, therefore transitioned to IV ertapenem. He will continue p.o. Augmentin based on susceptibilities to complete 7 days of antibiotic therapy. Blood cultures negative. He does have history of recurrent UTI and is established with urology. Perhaps his home Farxiga may be contributing to this. This was discontinued. He should follow-up with urology as an outpatient. Resume prophylactic trimethoprim following completion of Augmentin. (2) HTN (hypertension): Qualifiers: Hypertension type: essential hypertension Qualified Code(s): I10 - Essential (primary) hypertension Code(s): I10 - Essential (primary) hypertension Status: Acute Assessment and Plan: Blood pressure reviewed and were stable on the low end of normal. Continue carvedilol. Lisinopril was held, see below. Encouraged to monitor blood pressures at home. (3) CHF (congestive heart failure): Code(s): I50.9 - Heart failure, unspecified Status: Acute Assessment and Plan: Last echo September 2019 with mildly reduced EF of 40-45%. CXR findings nonspecific, may indicate mild pulmonary edema. BNP is 136. He was generally euvolemic on exam. Repeat echo on 07/29 showed EF 50-55% with grade I diastolic dysfunction. Continue home p.o. Lasix 40 mg and carvedilol. (4) JOSEFINA (obstructive sleep apnea): Code(s): G47.33 - Obstructive sleep apnea (adult) (pediatric) Status: Acute Assessment and Plan: Continue home CPAP (5) DM2 (diabetes mellitus, type 2): Code(s): E11.9 - Type 2 diabetes mellitus without complications Status: Chronic Assessment and Plan: A1c is 6.6. Blood sugars well controlled during admission. Home Farxiga was discontinued due to concerns regarding frequent UTI. Changed to Januvia. Follow up with PCP for further monitoring in 1-2 weeks. Encouraged to monitor blood sugars at home. (6) Cough: Code(s): R05.9 - Cough, unspecified Status: Acute Assessment and Plan: Patient complains of persistent dry cough. Etiology not entirely clear. CXR reviewed with mild reticular opacities. Clinical symptoms not consistent with pneumonia. Reported improvement with use of incentive spirometer. Lisinopril was held due to dry cough. Doubt that this is related given long-term lisinopril use, however based on his blood pressure trends will continue to hold. (7) Hypokalemia: Code(s): E87.6 - Hypokalemia Status: Acute Assessment and Plan: Resolved with supplementation. Subsequent potassium levels normal. (8) Lip swelling: Code(s): R22.0 - Localized swelling, mass and lump, head Status: Acute Assessment and Plan: Patient developed mild edema of upper and lower lips immediately following albuterol neb. He has used albuterol in the past without issues. Less likely to be due to lisinopril as this was held prior to swelling. No tongue swelling or airway compromise. Edema resolved. Albuterol added to allergy list. Discussed worrisome signs regarding allergic reaction/anaphylaxis for which to monitor and seek emergency care if he develops symptoms. DS: Summary Hospital Course Hospital Course: Date of admission: 07/27/2021 Date of discharge: 07/30/2021 Mario Shore is a 71 year old ma
[2021-07-30] MEDS: ERTAPENEM 1 GM/NS 50 ML 1 GM/50 ML BAG IVPB (13:10)
== END 2021-07-30 14:08 | disposition home or self-care (01) ==
LOC: ANHED 07-27 04:23 → ANH3MEDSUR 07-27 14:21
PROVIDERS: Nurse Practitioner; Physician Assistant; Admitting Provider Internal Medicine; Emergency Provider Emergency Medicine; PCP Family Medicine; Visit Provider Internal Medicine
DX: N39.0 Urinary tract infection, site not specified (principal); I11.0 Hypertensive heart disease with heart failure; I50.9 Heart failure, unspecified; E11.9 Type 2 diabetes mellitus without complications; E87.6 Hypokalemia; E78.00 Pure hypercholesterolemia, unspecified; G89.29 Other chronic pain; G47.33 Obstructive sleep apnea (adult) (pediatric); F41.9 Anxiety disorder, unspecified; N40.0 Benign prostatic hyperplasia without lower urinary tract symptoms; R05.9 Cough, unspecified; Z89.612 Acquired absence of left leg above knee; Z90.49 Acquired absence of other specified parts of digestive tract; Z79.899 Other long term (current) drug therapy; Z87.891 Personal history of nicotine dependence; Z79.84 Long term (current) use of oral hypoglycemic drugs
CPT/HCPCS: 36415; 51701; 71045; 71046; 80048; 80053; 81001; 82948; 83036; 83605; 83735; 83880; 84443; 85025; 85027; 86140; 87040; 87077; 87086; 87186; 94640; 96361; 96365; 96366; 96367; 96375; 97162; 97165; 99285; A9270; C8929; G0378; J0131; J0456; J0696; J1335; J1741; J7030; J8540; Q9957

== ENCOUNTER 2021-08-28 12:40 | Outpatient (CLI) | payer OTHER, SELFPAY ==
--- NOTE | ~2021-08-28 | US_ITS ---
EXAMINATION: US renal BI DATE: 08/28/2021 13:26 INDICATION: Complicated urinary tract infection TECHNIQUE: Multiple ultrasound grayscale images of the kidneys were obtained. COMPARISON: None. FINDINGS: The right kidney measures 12.3 x 7.0 x 6.7 cm. 2.4 cm anechoic right renal cyst. The left kidney juan f ures 11.8 6.8 x 6.0 cm. The kidneys demonstrate normal echogenicity. There is no hydronephrosis in ei ther kidney. No stones identified. The bladder is normal. IMPRESSION: 1. 2.4 cm right renal cyst. Otherwise normal kidneys with no hydronephrosis. Reviewed, dictated and finalized at location A. [facility]
== END 2021-08-28 12:41 | disposition home or self-care (01) ==
PROVIDERS: PCP Family Medicine; Visit Provider Urology
DX: N39.0 Urinary tract infection, site not specified (principal); N28.1 Cyst of kidney, acquired
CPT/HCPCS: 76775

== ENCOUNTER 2022-11-19 08:26 | Emergency (ER) | payer OTHER, SELFPAY ==
[2022-11-19 08:37] VITALS: BP 112/56; PULSE 77; RESP 16; TEMP 37.3; O2SAT 98
[2022-11-19 08:38] VITALS: BP 112/56; PULSE 77; RESP 16; TEMP 37.3; O2SAT 98
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
== END 2022-11-19 09:49 | disposition home or self-care (01) ==
PROVIDERS: Emergency Provider Nurse Practitioner Family; PCP Family Medicine
DX: S31.103A Unspecified open wound of abdominal wall, right lower quadrant without penetration into peritoneal cavity, initial encounter (principal); X58.XXXA Exposure to other specified factors, initial encounter; M19.90 Unspecified osteoarthritis, unspecified site; N40.0 Benign prostatic hyperplasia without lower urinary tract symptoms; E11.9 Type 2 diabetes mellitus without complications; K21.9 Gastro-esophageal reflux disease without esophagitis; I10 Essential (primary) hypertension; E78.00 Pure hypercholesterolemia, unspecified; Z89.612 Acquired absence of left leg above knee; F17.290 Nicotine dependence, other tobacco product, uncomplicated
CPT/HCPCS: 99212; G0463

== ENCOUNTER 2023-06-30 12:13 | Emergency (ER) | payer OTHER, SELFPAY ==
[2023-06-30 12:45] VITALS: BP 110/54; PULSE 86; RESP 16; TEMP 37.4; O2SAT 91
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
== END 2023-06-30 13:13 | disposition short-term general hospital (02) ==
LOC: EXPCOLL 12:16
PROVIDERS: Emergency Provider Nurse Practitioner; PCP Family Medicine
DX: R06.00 Dyspnea, unspecified (principal); R60.9 Edema, unspecified; E11.9 Type 2 diabetes mellitus without complications; I10 Essential (primary) hypertension; Z79.899 Other long term (current) drug therapy; Z87.891 Personal history of nicotine dependence
CPT/HCPCS: 99212; G0463

== ENCOUNTER 2023-09-19 12:19 | Emergency (ER) | payer OTHER, SELFPAY ==
[2023-09-19 12:24] VITALS: BP 108/53; PULSE 87; RESP 28; TEMP 37.6; O2SAT 86
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
== END 2023-09-19 12:41 | disposition short-term general hospital (02) ==
LOC: EXPCOLL 12:24
PROVIDERS: Emergency Provider Nurse Practitioner Family; PCP Family Medicine
DX: R06.02 Shortness of breath (principal); R09.02 Hypoxemia; Z87.891 Personal history of nicotine dependence; M19.90 Unspecified osteoarthritis, unspecified site; N40.0 Benign prostatic hyperplasia without lower urinary tract symptoms; E11.9 Type 2 diabetes mellitus without complications; K21.9 Gastro-esophageal reflux disease without esophagitis; I10 Essential (primary) hypertension; E78.00 Pure hypercholesterolemia, unspecified; Z99.81 Dependence on supplemental oxygen; Z89.612 Acquired absence of left leg above knee; Z79.82 Long term (current) use of aspirin
CPT/HCPCS: 99212; G0463